=== PATIENT | female | born 1955 | race Caucasian/White ===

== ENCOUNTER → 2016-09-21 | Outpatient (REF) | payer OTHER ==
[~2016-09-21] MED LIST: ALEVE; ATEN50TA2; DARV100T; [UNRECOGNIZED DRUG - CODE]; aleve
== END ==
LOC: M SFHCPLAZ 12:27
PROVIDERS: ATTEND Family Medicine
DX: I10 Essential (primary) hypertension (principal); G89.29 Other chronic pain; Z53.9 Procedure and treatment not carried out, unspecified reason

== ENCOUNTER 2016-11-25 11:03 | Emergency (ER) | payer OTHER ==
[2016-11-25] MEDS ORDERED: TRAM50TA2 PO (11:17)
[2016-11-25] MEDS ORDERED: NAPR250T2 PO (11:17)
[2016-11-25] MEDS ORDERED: CART120C PO (11:17)
[2016-11-25] MEDS ORDERED: LISI10TA4 PO (11:19)
[2016-11-25 11:48] LABS: MEAN CORPUSCULAR HEMOGLOBIN 29.8 pg (27.0-33.0); MEAN CORPUSCULAR HGB CONC 32.9 g/dl (32.0-36.5); MEAN CORPUSCULAR VOLUME 90.7 fl (80.0-96.0); RED CELL DISTRIBUTION WIDTH 12.3 % (11.5-14.5); WHITE BLOOD COUNT 4.1 K/mm3 (4.0-10.0)
[2016-11-25 12:15] LABS: ALBUMIN 3.5 GM/DL (3.2-5.2); ALBUMIN/GLOBULIN RATIO 0.97 (1.00-1.93); BILIRUBIN,TOTAL 0.4 MG/DL (0.2-1.0); CREATININE FOR GFR 1.17 MG/DL (0.55-1.02); GLOMERULAR FILTRATION RATE 49.9 (>45); POTASSIUM SERUM 4.2 MEQ/L (3.5-5.1); TOTAL PROTEIN 7.1 GM/DL (6.4-8.2)
[2016-11-25 12:56] VITALS: BP 117/70
--- NOTE | 2016-11-26 06:22 | REP ---
REASON: Hemoptysis secondary to nose bleed. COMPARISON: 06/07/2014. The technique utilized in obtaining the radiograph has magnified the cardiac silhouette and accentuated the interstitial markings. FINDINGS: The superior mediastinal structures are midline. The cardiac silhouette is unremarkable in size, shape, and position. The diaphragmatic surfaces of the lungs are regular, and the costophrenic angles are clear. The pulmonary keys are clear. The imaged osseous structures are intact. IMPRESSION: There is no acute cardiopulmonary disease. No change from the prior exam. Signed by Gilmar Beavers DO 11/26/2016 12:05 P
== END 2016-11-25 13:08 | disposition home or self-care (01) ==
LOC: EDBD 11:03 → M ED 11:56
DX: R04.0 Epistaxis (principal); I10 Essential (primary) hypertension; Z87.440 Personal history of urinary (tract) infections; Z85.841 Personal history of malignant neoplasm of brain

== ENCOUNTER → 2017-01-17 | Outpatient (CLI) | payer OTHER ==
[~2017-01-17] MED LIST changes: +CART120C PO; +ISOVUE-370 76% 100ML VIAL (Q9967) As Ordered ONE; +LISI10TA4 PO; +NAPR250T2 PO; +TRAM50TA2 PO
--- NOTE | 2017-01-17 11:22 | REP ---
MAXILLOFACIAL CT WITH CONTRAST: HISTORY: Epistaxis. CONTRAST: Isovue 370, 75 mL. A left Lokesh cell is present. Mild mucosal thickening is present in the left maxillary sinus. Minimal mucosal thickening is present in the right maxillary and left sphenoid sinuses. The remaining sinuses are clear. Mucosal thickening involves the left osteomeatal unit. The right osteomeatal unit is patent. The middle and inferior nasal turbinates are partially paradoxical. There is eddi bullosa of the middle nasal turbinates. The nasal septum is midline. The cribriform plate, medial power of the orbits, and optic canals are intact. There is aeration of the anterior clinoid processes. The carotid canals form a segment of the posterolateral power of the sphenoid sinus. Calcifications are present in the tonsils. This is secondary to previous inflammatory disease. Small lymph nodes less than 1 cm in size are present in the internal jugular chains, posterior triangles, submandibular, and submental areas. IMPRESSION: Sinus mucosal thickening as described above. Signed by Mendel Lovett MD 01/17/2017 11:24 A
== END ==
LOC: M RAD 10:26
PROVIDERS: ATTEND Otolaryngology
DX: R04.0 Epistaxis (principal); J34.89 Other specified disorders of nose and nasal sinuses
CPT/HCPCS: 70487; Q9967

== ENCOUNTER → 2017-04-02 | Outpatient (CLI) | payer OTHER ==
[~2017-04-02] MED LIST changes: -ISOVUE-370 76% 100ML VIAL (Q9967) As Ordered ONE; -NAPR250T2 PO; +NAPR250T4 PO
== END ==
LOC: M LAB 15:32
PROVIDERS: ATTEND Student in an Organized Health Care Education/Training Program
DX: G47.62 Sleep related leg cramps (principal)

== ENCOUNTER → 2017-05-08 | Outpatient (REF) | payer OTHER | LOC: M SFHCPLAZ 13:20 | PROVIDERS: ATTEND Family Medicine | DX: I10 Essential (primary) hypertension (principal) ==

== ENCOUNTER → 2017-07-29 | Outpatient (CLI) | payer OTHER ==
--- NOTE | 2017-07-29 15:42 | REP ---
Clinical: Bilateral varicosities. Technique: [place] scale and color Doppler evaluation using linear high frequency transducer with reflux evaluation. Findings: Ultrasound examination of the right and left lower extremity deep venous structures from the common femoral vein to the popliteal vein demonstrates normal compressibility flow and wave patterns in response to respiration and augmentation. There is no evidence for deep venous thrombosis. There is partial occlusion involving the right proximal to mid greater saphenous vein. There is evidence for reflux through the right deep venous system. Severe reflux noted through the right proximal to mid greater saphenous vein including associated large collateral vessels and anterior accessory vein. Specifically, the proximal greater saphenous vein measures 12.3 mm AP diameter with reflux of 4.6 second duration; the mid greater saphenous vein measures 11.3 mm AP diameter with reflux of 3.2 seconds duration; distal greater saphenous vein at the knee measures 8.4 mm AP diameter with reflux 1.6 seconds. There is no evidence for reflux through the left deep venous system. Moderate reflux noted through the left proximal to mid greater saphenous vein including anterior accessory vein. Specifically, the proximal greater saphenous vein measures 7.7 mm AP diameter with reflux of 2.6 seconds duration; the mid greater saphenous vein measures 4.2 mm AP diameter with reflux of 5.8 seconds duration; distal greater saphenous vein at the knee measures 4.6 mm. Impression: 1. No evidence for deep venous thrombosis. 2. Partial occlusion to the right greater saphenous vein. 3. Bilateral reflux (right greater than left) as described above. Signed by Gonzalo Medel MD 07/29/2017 03:33 P
== END | disposition home or self-care (01) ==
LOC: M RAD 13:13
PROVIDERS: ATTEND Surgery Vascular Surgery
DX: I83.90 Asymptomatic varicose veins of unspecified lower extremity (principal)

== ENCOUNTER → 2017-09-05 | Outpatient (REF) | payer OTHER | LOC: M SFHCLERA 11:30 | PROVIDERS: ATTEND Family Medicine | DX: J02.9 Acute pharyngitis, unspecified (principal) ==

== ENCOUNTER → 2017-11-04 | Outpatient (CLI) | payer OTHER ==
[2017-11-04 10:37] LABS: BASO % 0.7 % (0.0-1.0); EOS # 0.2 10^3/uL (0.0-0.50); EOS % 4.1 % (0.0-3.0); HEMATOCRIT 39.8 % (36.0-47.0); HEMOGLOBIN 12.6 g/dl (12.0-16.0); IMMATURE GRANULOCYTE % 0.4 % (0-3.0); LYMPH # 1.6 10^3/uL (1.5-4.5); LYMPH % 29.9 % (24.0-44.0); MEAN CORPUSCULAR HEMOGLOBIN 29.5 pg (27.0-33.0); MEAN CORPUSCULAR HGB CONC 31.7 g/dl (32.0-36.5); MEAN CORPUSCULAR VOLUME 93.2 fl (80.0-96.0); MONO # 0.5 10^3/uL (0.0-0.8); MONO % 9.7 % (0.0-5.0); NEUTROPHILS % 55.2 % (36.0-66.0); PLATELET COUNT, AUTOMATED 244 10^3/uL (150-450); RED BLOOD COUNT 4.27 10^6/uL (4.00-5.40); WHITE BLOOD COUNT 5.4 10^3/uL (4.0-10.0)
[2017-11-04 10:55] LABS: ANION GAP 5 MEQ/L (8-16); BLOOD UREA NITROGEN 32 MG/DL (7-18); CALCIUM LEVEL 9.4 MG/DL (8.8-10.2); CARBON DIOXIDE LEVEL 31 MEQ/L (21-32); CHLORIDE LEVEL 107 MEQ/L (98-107); CREATININE FOR GFR 1.16 MG/DL (0.55-1.30); GLOMERULAR FILTRATION RATE 50.2 (>45); GLUCOSE, FASTING 80 MG/DL (70-100); POTASSIUM SERUM 4.4 MEQ/L (3.5-5.1); SODIUM LEVEL 143 MEQ/L (136-145)
== END ==
LOC: M LAB 09:59
DX: I87.393 Chronic venous hypertension (idiopathic) with other complications of bilateral lower extremity (principal)

== ENCOUNTER → 2017-11-18 | Outpatient (CLI) | payer OTHER | LOC: M EKG 16:17 | DX: Z01.818 Encounter for other preprocedural examination (principal); I10 Essential (primary) hypertension | CPT/HCPCS: 93005 ==

== ENCOUNTER 2017-11-22 08:59 | Day surgery (SDC) | payer OTHER ==
[~2017-11-22 08:59] MED LIST changes: -ALEVE; -ATEN50TA2; -CART120C PO; -DARV100T; +LIDOCAINE 1% SDV INJ 30 ML VIAL As Ordered; -LISI10TA4 PO; -NAPR250T4 PO; -TRAM50TA2 PO; -[UNRECOGNIZED DRUG - CODE]; -aleve
[2017-11-22] MEDS: LR 1,000 ML IV (09:35)
[2017-11-22] MEDS ORDERED: PROPOFOL 200 MG/20 ML VIAL As Ordered ×7 (09:36→11:28)
[2017-11-22] MEDS ORDERED: MIDAZOLAM INJ 2 MG/2 ML VIAL (J2250) As Ordered ×2 (09:38→10:51)
[2017-11-22] MEDS ORDERED: fentaNYL 100 MCG/2 ML INJECTION (J3010) As Ordered (09:39)
[2017-11-22] MEDS: LIDOCAINE W/EPINEPHRINE 1% 20ML VIAL As Ordered (11:12)
[2017-11-22] MEDS ORDERED: KETOROLAC 60 MG/2 ML VIAL (J1885) As Ordered (11:14)
[2017-11-22] MEDS ORDERED: ONDANSETRON 4MG/2ML VIAL (J2405) As Ordered (11:14)
[2017-11-22] MEDS ORDERED: dexameTHASONE 4 MG/ML 1ML VIAL (J1100) As Ordered ×2 (11:14)
[2017-11-22] MEDS ORDERED: PERCOCET 5MG/325MG TAB As Ordered (12:20)
[2017-11-22] MEDS ORDERED: ONDANSETRON 4MG/2ML VIAL (J2405) IV (12:30)
[2017-11-22] MEDS ORDERED: LR 1,000 ML IV (12:30)
[2017-11-22] MEDS: PERCOCET 5MG/325MG TAB PO (12:31)
== END 2017-11-22 13:24 | disposition home or self-care (01) ==
LOC: M SDC 08:59
DX: I83.93 Asymptomatic varicose veins of bilateral lower extremities (principal); I10 Essential (primary) hypertension; M81.0 Age-related osteoporosis without current pathological fracture; E66.01 Morbid (severe) obesity due to excess calories; Z79.899 Other long term (current) drug therapy
CPT/HCPCS: 36475

== ENCOUNTER → 2017-11-29 | Outpatient (CLI) | payer OTHER | LOC: M RAD 09:51 | DX: I87.2 Venous insufficiency (chronic) (peripheral) (principal) | CPT/HCPCS: 93971 ==

== ENCOUNTER 2018-01-11 16:07 | Emergency (ER) | payer OTHER ==
[2018-01-11 17:44] LABS: BASO % 0.3 % (0.0-1.0); EOS # 0.3 10^3/uL (0.0-0.50); EOS % 3.3 % (0.0-3.0); HEMATOCRIT 38.4 % (36.0-47.0); HEMOGLOBIN 12.4 g/dl (12.0-15.5); IMMATURE GRANULOCYTE % 0.3 % (0-3.0); LYMPH # 1.5 10^3/uL (1.5-4.5); MEAN CORPUSCULAR HEMOGLOBIN 30.1 pg (27.0-33.0); MEAN CORPUSCULAR HGB CONC 32.3 g/dl (32.0-36.5); MEAN CORPUSCULAR VOLUME 93.2 fl (80.0-96.0); MONO # 0.8 10^3/uL (0.0-0.8); MONO % 8.8 % (0.0-5.0); NEUTROPHILS # 6.5 10^3/uL (1.8-7.7); NEUTROPHILS % 71.3 % (36.0-66.0); PLATELET COUNT, AUTOMATED 312 10^3/uL (150-450); RED BLOOD COUNT 4.12 10^6/uL (4.00-5.40); RED CELL DISTRIBUTION WIDTH 12.5 % (11.5-14.5); WHITE BLOOD COUNT 9.1 10^3/uL (4.0-10.0)
[2018-01-11 18:02] LABS: INR 0.99; PROTHROMBIN TIME 13.2 SECONDS (12.4-14.5)
[2018-01-11 18:10] LABS: ANION GAP 6 MEQ/L (8-16); BLOOD UREA NITROGEN 25 MG/DL (7-18); C REACTIVE PROTEIN QUANTITATIV 9.92 MG/DL (0.00-0.30); CALCIUM LEVEL 9.6 MG/DL (8.8-10.2); CARBON DIOXIDE LEVEL 28 MEQ/L (21-32); CHLORIDE LEVEL 107 MEQ/L (98-107); CREATININE FOR GFR 1.72 MG/DL (0.55-1.30); GLOMERULAR FILTRATION RATE 31.9 (>45); GLUCOSE, FASTING 97 MG/DL (70-100); POTASSIUM SERUM 4.1 MEQ/L (3.5-5.1); SODIUM LEVEL 141 MEQ/L (136-145)
[2018-01-11 18:30] LABS: ERYTHROCYTE SEDIMENTATION RATE 67 mm/hr (0-30)
[2018-01-11] MEDS: NS 1,000 ML IV (19:45)
[2018-01-11] MEDS: cefTRIAXone SOD 2 GM in D5W MINI-BAG PLUS 50 ML IV (19:45)
[2018-01-11] MEDS: AUGMENTIN 875 MG TAB PO (20:55)
== END 2018-01-11 21:05 | disposition home or self-care (01) ==
LOC: M ED 16:07
DX: L03.116 Cellulitis of left lower limb (principal); S81.802A Unspecified open wound, left lower leg, initial encounter; X58.XXXA Exposure to other specified factors, initial encounter; Y92.89 Other specified places as the place of occurrence of the external cause; I10 Essential (primary) hypertension
CPT/HCPCS: J0696

== ENCOUNTER 2018-01-13 13:01 | Emergency (ER) | payer OTHER ==
[2018-01-13 15:42] LABS: BASO % 0.4 % (0.0-1.0); EOS # 0.4 10^3/uL (0.0-0.50); EOS % 4.9 % (0.0-3.0); IMMATURE GRANULOCYTE % 0.3 % (0-3.0); LYMPH # 2.1 10^3/uL (1.5-4.5); LYMPH % 23.6 % (24.0-44.0); MEAN CORPUSCULAR HGB CONC 32.4 g/dl (32.0-36.5); MEAN CORPUSCULAR VOLUME 92.5 fl (80.0-96.0); MONO # 0.8 10^3/uL (0.0-0.8); MONO % 8.8 % (0.0-5.0); NEUTROPHILS # 5.6 10^3/uL (1.8-7.7); PLATELET COUNT, AUTOMATED 304 10^3/uL (150-450); RED CELL DISTRIBUTION WIDTH 12.4 % (11.5-14.5)
[2018-01-13 15:59] LABS: INR 0.99; PROTHROMBIN TIME 13.2 SECONDS (12.4-14.5)
[2018-01-13 16:00] LABS: PARTIAL THROMBOPLASTIN TIME 29.5 SECONDS (26.8-37.9)
[2018-01-13 16:01] LABS: ANION GAP 6 MEQ/L (8-16); BLOOD UREA NITROGEN 23 MG/DL (7-18); CALCIUM LEVEL 9.5 MG/DL (8.8-10.2); CARBON DIOXIDE LEVEL 28 MEQ/L (21-32); CHLORIDE LEVEL 105 MEQ/L (98-107); GLUCOSE, FASTING 85 MG/DL (70-100); POTASSIUM SERUM 4.2 MEQ/L (3.5-5.1); SODIUM LEVEL 139 MEQ/L (136-145)
== END 2018-01-13 17:26 | disposition home or self-care (01) ==
LOC: M ED 13:01
DX: L03.116 Cellulitis of left lower limb (principal); T36.0X5A Adverse effect of penicillins, initial encounter; R19.7 Diarrhea, unspecified; E86.0 Dehydration; I10 Essential (primary) hypertension; Z87.440 Personal history of urinary (tract) infections; Z79.899 Other long term (current) drug therapy; Z79.2 Long term (current) use of antibiotics
CPT/HCPCS: 80048

== ENCOUNTER → 2018-04-23 | Outpatient (CLI) | payer OTHER | LOC: M RAD 11:52 | DX: Z12.31 Encounter for screening mammogram for malignant neoplasm of breast (principal) | CPT/HCPCS: 77067 ==

== ENCOUNTER → 2018-07-23 | Outpatient (CLI) | payer OTHER | LOC: M LRY 17:51 | DX: R10.32 Left lower quadrant pain (principal) | CPT/HCPCS: 74018; 81002 ==

== ENCOUNTER → 2018-07-23 | Outpatient (REF) | payer OTHER | LOC: M SFHCLERA 17:45 | DX: R10.32 Left lower quadrant pain (principal) ==

== ENCOUNTER → 2018-10-15 | Outpatient (REF) | payer OTHER ==
[~2018-10-15] MED LIST changes: +ALEV220T26 PO; +ALEVE; +ATEN50TA2; +AUGM875T28 PO; +CALCTAB29 PO; +CART120C PO; +DARV100T; -LIDOCAINE 1% SDV INJ 30 ML VIAL As Ordered; +LISI10TA4 PO; +NAPR250T4 PO; +NORCOTAB PO; +TRAM50TA2 PO; +[UNRECOGNIZED DRUG - CODE]; +aleve
== END ==
LOC: M SFHCLERA 10:09
PROVIDERS: ATTEND Physician Assistant
DX: J02.9 Acute pharyngitis, unspecified (principal)

== ENCOUNTER → 2019-01-06 | Outpatient (REF) | payer OTHER ==
[~2019-01-06] MED LIST changes: +HYDR-3715 PO; -NORCOTAB PO
[2019-01-06 12:03] LABS: CALCIUM LEVEL 8.9 MG/DL (8.8-10.2); CREATININE FOR GFR 1.36 MG/DL (0.55-1.30); GLOMERULAR FILTRATION RATE 41.7 (>45); POTASSIUM SERUM 5.3 MEQ/L (3.5-5.1)
== END ==
LOC: M SFHCLERA 09:13
PROVIDERS: ATTEND Family Medicine
DX: I10 Essential (primary) hypertension (principal)

== ENCOUNTER → 2019-01-22 | Outpatient (REF) | payer OTHER ==
[2019-01-22 11:35] LABS: BASO % 0.6 % (0.0-1.0); EOS # 0.1 10^3/uL (0.0-0.50); EOS % 2.5 % (0.0-3.0); HEMATOCRIT 40.6 % (36.0-47.0); HEMOGLOBIN 12.9 g/dl (12.0-15.5); LYMPH # 1.2 10^3/uL (1.5-4.5); LYMPH % 25.6 % (24.0-44.0); MEAN CORPUSCULAR HEMOGLOBIN 29.6 pg (27.0-33.0); MEAN CORPUSCULAR HGB CONC 31.8 g/dl (32.0-36.5); MEAN CORPUSCULAR VOLUME 93.1 fl (80.0-96.0); MONO # 0.6 10^3/uL (0.0-0.8); MONO % 12.4 % (0.0-5.0); NEUTROPHILS # 2.8 10^3/uL (1.8-7.7); NEUTROPHILS % 58.5 % (36.0-66.0); PLATELET COUNT, AUTOMATED 226 10^3/uL (150-450); RED BLOOD COUNT 4.36 10^6/uL (4.00-5.40); WHITE BLOOD COUNT 4.8 10^3/uL (4.0-10.0)
[2019-01-22 11:38] LABS: APPEARANCE, URINE HAZY (CLEAR); BACTERIA, URINE AUTO NEGATIVE (NEGATIVE); BILIRUBIN, URINE AUTO NEGATIVE (NEGATIVE); BLOOD, URINE BLOOD NEGATIVE (NEGATIVE); COLOR, URINE YELLOW (YELLOW); GLUCOSE, URINE (UA) AUTO NEGATIVE (NEGATIVE); KETONE, URINE AUTO NEGATIVE (NEGATIVE); LEUKOCYTE ESTERASE, URINE AUTO 1+ (NEGATIVE); MUCUS, URINE SMALL (NEGATIVE); NITRITE, URINE AUTO NEGATIVE (NEGATIVE); PROTEIN, URINE AUTO NEGATIVE (NEGATIVE); RBC, URINE AUTO 1 /HPF (0-3); SPECIFIC GRAVITY URINE AUTO 1.017 (1.002-1.035); SQUAMOUS EPITHELIAL CELL UR AU 7 /HPF (0-6); UROBILINOGEN, URINE AUTO 0.2 mg/dL (0.0-2.0); WBC, URINE AUTO 3 /HPF (0-3)
[2019-01-22 11:40] LABS: BILIRUBIN,TOTAL 0.4 MG/DL (0.2-1.0); CALCIUM LEVEL 9.2 MG/DL (8.8-10.2); CREATININE FOR GFR 1.43 MG/DL (0.55-1.30); GLOMERULAR FILTRATION RATE 39.3 (>45); POTASSIUM SERUM 4.8 MEQ/L (3.5-5.1); TOTAL PROTEIN 6.9 GM/DL (6.4-8.2)
== END ==
LOC: M SFHCLERA 09:03
PROVIDERS: ATTEND Family Medicine
DX: R35.0 Frequency of micturition (principal)

== ENCOUNTER → 2019-02-04 | Outpatient (REF) | payer OTHER ==
[2019-02-04 20:32] LABS: ALBUMIN 3.7 GM/DL (3.2-5.2); CALCIUM LEVEL 8.9 MG/DL (8.8-10.2); CREATININE FOR GFR 1.33 MG/DL (0.55-1.30); GLOMERULAR FILTRATION RATE 42.8 (>45); PHOSPHORUS LEVEL 3.9 MG/DL (2.5-4.9)
== END ==
LOC: M SFHCLERA 16:20
PROVIDERS: ATTEND Family Medicine
DX: R94.4 Abnormal results of kidney function studies (principal)

== ENCOUNTER → 2019-06-01 | Outpatient (CLI) | payer MEDICARE, OTHER ==
--- NOTE | 2019-06-01 15:20 | REP ---
BILATERAL SCREENING DIGITAL MAMMOGRAM WITH 3D TOMOSYNTHESIS: There are no palpable abnormalities or other breast complaints. The the patient states she had a clinical breast examination May,. The Tyrer-Cuzick Score is: 11.8% . Comparison is 05/25/2016. There are scattered areas of fibroglandular density. There is no dominant mass, micro calcific cluster or architectural distortion that would indicate malignancy. There are scattered isolated benign calcifications. There are no additional findings on 3D tomosynthesiss. There is no change from the prior study. Impression: BIRADS/ACR category 2 mammogram. Benign findings. Recommendation: Routine annual screening mammography. This mammogram was interpreted with the aid of a FDA approved computer-aided detection system. A. Negative mammogram reports should not delay biopsy if a dominant or clinically suspicious mass is present. B. Not all breast cancers are identified by mammography or tomosynthesis. C. Adenosis and dense breasts may obscure an underlying neoplasm. Patient letter M1. Electronically Signed by Seamus Agustin MD 06/01/2019 03:12 P
== END ==
LOC: M RAD 13:29
PROVIDERS: ATTEND Obstetrics & Gynecology
DX: Z12.31 Encounter for screening mammogram for malignant neoplasm of breast (principal)

== ENCOUNTER → 2019-10-21 | Outpatient (REF) | payer MEDICARE, OTHER | LOC: M SFHCLERA 11:15 | PROVIDERS: ATTEND Family Medicine | DX: R35.0 Frequency of micturition (principal) | CPT/HCPCS: 81002; 87088; 87186; G0463 ==

== ENCOUNTER → 2020-06-16 | Outpatient (CLI) | payer MEDICARE, OTHER ==
--- NOTE | 2020-06-16 09:36 | REPMRS ---
Patient History The patient states she had a clinical breast exam in May 2020.Family history of breast cancer at age 70 in mother. 3D TOMOSYNTHESIS WAS PERFORMED. [facility] for breast cancer [facility] 10.7%. VOLPARA DENSITY A. Digital Woman Screen Mammo: June 16, 2020 - Exam #: [id number] Bilateral CC and MLO view(s) were taken. Technologist: Margaret Lucia, Technologist Prior study comparison: June 01, 2019, bilateral digital mammo screening bilat, performed at [facility]. April 23, 2018, bilateral digital mammo screening bilat, performed at [facility]. FINDINGS: There are scattered fibroglandular densities. There has been no change in the appearance of the mammogram from the prior studies. There is a mild amount of residual fibroglandular tissue which is fairly symmetric. There is no interval development of dominant mass, architectural distortion, or clustered microcalcification suggestive of malignancy. Assessment: BI-RADS/ACR category 1 mammogram. Negative Mammogram. Recommendation Routine screening mammogram in 1 year (for women over age 40). This mammogram was interpreted with the aid of an FDA-approved computer-aided dectection system. Electronically Signed By: Seamus Del Rio MD 06/16/20 0935
--- NOTE | 2020-06-21 15:46 | DEXA ---
AP SPINE L1 - L4 1.501 2.5 4.1 LT FEMUR TOTAL 0.975 -0.3 1.0 LT NECK 0.930 -0.8 0.7 RT FEMUR TOTAL 0.940 -0.5 0.7 RT NECK 1.151 0.8 2.3 TOTAL BODY TOTAL OTHER COMMENTS: Normal bone density of the spine and hips. The density of the spine is increased 10.5% since 04/17/2018 The density of the left hip has decreased 5.1% since 04/17/2018. The density of the right hip has decreased 8.4% since 04/17/2018. The increased density of the spine does represent a significant change. The decreased density of the left hip does represent a significant change. The decreased density of the right hip does represent significant change. FOLLOW-UP: Recommendation for the next bone density exam: 5 years. RANJAN
== END ==
LOC: M WHC 08:12
PROVIDERS: ATTEND Advanced Practice Midwife
DX: Z13.820 Encounter for screening for osteoporosis (principal); Z12.31 Encounter for screening mammogram for malignant neoplasm of breast; Z80.3 Family history of malignant neoplasm of breast; M85.851 Other specified disorders of bone density and structure, right thigh; M85.852 Other specified disorders of bone density and structure, left thigh

== ENCOUNTER → 2020-08-03 | Outpatient (REF) | payer MEDICARE, OTHER | LOC: M SFHCLERA 15:44 | PROVIDERS: ATTEND Nurse Practitioner Family | DX: R35.0 Frequency of micturition (principal); R81 Glycosuria | CPT/HCPCS: 81002; 82948; 87086; G0463 ==

== ENCOUNTER → 2020-08-05 | Outpatient (CLI) | payer MEDICARE, OTHER ==
[2020-08-05 17:00] LABS: BASO % 0.6 % (0.0-1.0); EOS # 0.3 10^3/uL (0.0-0.5); EOS % 4.3 % (0.0-3.0); HEMATOCRIT 38.8 % (36.0-47.0); HEMOGLOBIN 12.3 g/dl (12.0-15.5); LYMPH # 2.1 10^3/uL (1.5-5.0); LYMPH % 33.7 % (24.0-44.0); MEAN CORPUSCULAR HEMOGLOBIN 30.4 pg (27.0-33.0); MEAN CORPUSCULAR HGB CONC 31.7 g/dl (32.0-36.5); MONO # 0.6 10^3/uL (0.0-0.8); NEUTROPHILS # 3.1 10^3/uL (1.5-8.5); NEUTROPHILS % 50.1 % (36.0-66.0); PLATELET COUNT, AUTOMATED 209 10^3/uL (150-450); RED BLOOD COUNT 4.04 10^6/uL (4.00-5.40); WHITE BLOOD COUNT 6.2 10^3/uL (4.0-10.0)
[2020-08-05 17:28] LABS: ALBUMIN 3.6 GM/DL (3.2-5.2); BILIRUBIN,TOTAL 0.4 MG/DL (0.2-1.0); CALCIUM LEVEL 9.4 MG/DL (8.8-10.2); CREATININE FOR GFR 1.51 MG/DL (0.55-1.30); GLOMERULAR FILTRATION RATE 36.7 (>45); POTASSIUM SERUM 4.4 MEQ/L (3.5-5.1); TOTAL PROTEIN 6.6 GM/DL (6.4-8.2)
== END ==
LOC: M LAB 16:17
PROVIDERS: ATTEND Nurse Practitioner Family
DX: R81 Glycosuria (principal); Z79.899 Other long term (current) drug therapy

== ENCOUNTER → 2020-08-19 | Outpatient (CLI) | payer MEDICARE, OTHER ==
[2020-08-19 17:51] LABS: APPEARANCE, URINE HAZY (CLEAR); BACTERIA, URINE AUTO 1+ (NEGATIVE); BILIRUBIN, URINE AUTO NEGATIVE (NEGATIVE); BLOOD, URINE BLOOD NEGATIVE (NEGATIVE); COLOR, URINE YELLOW (YELLOW); GLUCOSE, URINE (UA) AUTO NEGATIVE (NEGATIVE); KETONE, URINE AUTO NEGATIVE (NEGATIVE); LEUKOCYTE ESTERASE, URINE AUTO 3+ (NEGATIVE); NITRITE, URINE AUTO NEGATIVE (NEGATIVE); PROTEIN, URINE AUTO NEGATIVE (NEGATIVE); RBC, URINE AUTO 2 /HPF (0-3); SPECIFIC GRAVITY URINE AUTO 1.023 (1.002-1.035); SQUAMOUS EPITHELIAL CELL UR AU 2 /HPF (0-6); UROBILINOGEN, URINE AUTO 0.2 mg/dL (0.0-2.0); WBC, URINE AUTO 7 /HPF (0-3)
[2020-08-19 18:25] LABS: ALBUMIN 3.7 GM/DL (3.2-5.2); BILIRUBIN,TOTAL 0.5 MG/DL (0.2-1.0); CALCIUM LEVEL 9.3 MG/DL (8.8-10.2); CREATININE FOR GFR 1.53 MG/DL (0.55-1.30); GLOMERULAR FILTRATION RATE 36.2 (>45); MAGNESIUM LEVEL 2.1 MG/DL (1.8-2.4); PHOSPHORUS LEVEL 3.3 MG/DL (2.5-4.9); POTASSIUM SERUM 4.6 MEQ/L (3.5-5.1); TOTAL PROTEIN 6.6 GM/DL (6.4-8.2)
== END ==
LOC: M LAB 16:46
PROVIDERS: ATTEND Family Medicine
DX: N18.30 Chronic kidney disease, stage 3 unspecified (principal)

== ENCOUNTER 2020-08-20 05:51 | Emergency (ER) | payer MEDICARE, OTHER ==
[~2020-08-20] VITALS: Ht 160 cm; Wt 118.3 kg
--- NOTE | 2020-08-20 07:23 | REPVR ---
PROCEDURE INFORMATION: Exam: XR Left Humerus Exam date and time: 08/20/2020 6:45 AM Age: 65 years old Clinical indication: Other: Pain; Additional info: Pain, swelling/tumor TECHNIQUE: Imaging protocol: XR Left humerus Views: 2 or more views. COMPARISON: No relevant prior studies available. FINDINGS: Bones/joints: Normal. Soft tissues: Normal. IMPRESSION: No acute findings. Electronically signed by: Eros Farmer On 08/20/2020 07:23:55 AM
--- NOTE | 2020-08-20 07:42 | REPVR ---
PROCEDURE INFORMATION: Exam: US Duplex Left Upper Extremity Veins, Limited Exam date and time: 08/20/2020 7:26 AM Age: 65 years old Clinical indication: Pain; Arm, upper; Left; Additional info: Pain, swelling TECHNIQUE: Imaging protocol: Real-time Duplex ultrasound of the Left Upper Extremity with 2-D mathur scale, color Doppler flow and spectral waveform analysis with image documentation. Limited exam focused on the left upper extremity veins. COMPARISON: No relevant prior studies available. FINDINGS: Left deep veins: Unremarkable. Axillary and brachial veins are patent throughout without thrombus. Normal Doppler waveforms. Normal compressibility and/or augmentation response. Visualized internal jugular and subclavian veins are patent. Left superficial veins: Unremarkable. Visualized cephalic and basilic veins are patent without thrombus. Soft tissues: Unremarkable. IMPRESSION: No evidence of deep vein thrombosis. Electronically signed by: Eros Farmer On 08/20/2020 07:42:23 AM
[2020-08-20 08:11] VITALS: BP 124/80
== END 2020-08-20 08:26 | disposition home or self-care (01) ==
LOC: M ED 05:51
DX: D17.22 Benign lipomatous neoplasm of skin and subcutaneous tissue of left arm (principal); M79.602 Pain in left arm; I10 Essential (primary) hypertension; Z79.899 Other long term (current) drug therapy

== ENCOUNTER → 2020-09-21 | Outpatient (CLI) | payer MEDICARE, OTHER ==
[~2020-09-21] MED LIST changes: +D31000TA2 PO
--- NOTE | 2020-09-22 00:03 | ECGEPIP ---
[facility] Test Date: 2020-09-21 Pat Name: BRYN BRITO Department: Room: - Gender: Female Twister Hand: : 1955 Requested By: ORALIA Castro Order Number: [id number] Reading MD: Marlo Rose Measurements Intervals Likely Rate: 58 P: -4 MT: 138 QRS: 45 QRSD: 82 T: 31 QT: 378 QTc: 374 Interpretive Statements SINUS BRADYCARDIA Compared to prior tracings(2) in the system, no significant changes Electronically Signed on 09-22-2020 0:03:04 EST by Marlo Rose
== END ==
LOC: M EKG 16:03
PROVIDERS: ATTEND Anesthesiology
DX: N28.9 Disorder of kidney and ureter, unspecified (principal); I10 Essential (primary) hypertension; R00.1 Bradycardia, unspecified

== ENCOUNTER → 2020-09-28 | Outpatient (CLI) | payer MEDICARE, OTHER | LOC: M LABSMTC 10:00 | PROVIDERS: ATTEND Anesthesiology | DX: Z01.812 Encounter for preprocedural laboratory examination (principal); Z20.828 Contact with and (suspected) exposure to other viral communicable diseases ==

== ENCOUNTER 2020-10-03 06:12 | Day surgery (SDC) | payer MEDICARE, OTHER ==
[~2020-10-03] VITALS: Ht 162.6 cm; Wt 115.2 kg
[~2020-10-03 06:12] MED LIST changes: +LISI10TA22 PO; -LISI10TA4 PO
--- OUTSIDE RECORDS SUMMARY | 2020-10-03 06:17 | CCD ---
Author Author [facility] Organization [facility] Address Unknown Phone Unavailable Care Team Providers Care Planting Machine Crewman Name Role Phone Carolin Becerra Unavailable PROBLEMS Type Condition ICD9-CM Code [id number] Code Onset Dates Condition S tatus SNOMED Code Notes Problem History of uterine cancer Z85.42 Active 718318 009 Problem History of meningioma of the brain Z86.011 Activ e 368014055 Problem Allergic rhinitis J30.9 Active 06789902 Problem Symptomatic varicose veins of right lower extremity I83.891 Active 672802119 Problem Venous stasis dermatitis of both lower extremities I87.2 Active 02086726 Problem Essential (primary) hypertension I10 Active 74266640 Problem Other chronic pain G89.29 Active 65569891 Problem Morbid (severe) obesity due to excess calories E66 .01 Active 694215388 Problem Post-traumatic osteoarthritis of left ankle M19.17 2 Active 673490537 ALLERGIES No Known Allergies ENCOUNTERS from 1955 to 2020-08-02 Encounter Location Date Provider Diagnosis [facility] [address] [place] [address] Jul, Carolin Becerra Post-traumatic osteoarthritis of left an kle M19.172 IMMUNIZATIONS Vaccine Route Administration Date Status TDAP Unknown Aug 16, 2010 Administered Influenza (6mo & up) Fluzone IM Intramuscular Jul 10, 2018 Ad ministered Influenza (6mo & up) Fluzone IM Intramuscular Sep 10, 2017 Ad ministered Influenza (6mo & up) Fluzone Unknown Jul 14, 2017 Oth ers Influenza (6mo & up) Fluzone Unknown Jul 02, 2016 Oth ers SOCIAL HISTORY Tobacco Use: Social History Observation Description Date Details (start date - stop date) Never Smoker Sex Assigned At : Social History Observation Description Sex Assigned At Unknown Education: Question Answer Notes Level of Education: College Language: Question Answer Notes Languages spoken: Uruguayan Oriental Orthodox: Question Answer Notes Oriental Orthodox No sabianism beliefs that would impact health care. Sexual Hx: Question Answer Notes Had sex in the last 12 months (vaginal, oral, or anal)? No Alcohol Screening: Question Answer Notes Did you have a drink containing alcohol in the past year? No Points 0 Interpretation Negative BMI Care Goal Follow-Up Question Answer Notes Above Normal BMI Follow-Up Lifestyle education regarding t Tobacco Use: Question Answer Notes Are you a: never smoker never smoker REASON FOR REFERRAL No Information VITAL SIGNS No information MEDICATIONS Medication SIG (Take, Route, Frequency, Duration) Notes Start Da te End Date Status Cartia XT 120 MG 1 capsule Orally Once a day for 90 Active Macrobid 100 MG 1 capsule with food Orally every 12 hrs for 5 da y(s) January, Not-Taking Aquaphor - as directed Externally Daily for 30 day(s) 27 N 2016 Not-Taking Naproxen 250 MG 1 tablet Orally Twice a day Active CeraVe Active Calcium 500+D High Potency 500-400 MG-UNIT 2 tabs Orally daily May, Active Macrobid 100 MG 1 capsule at bedtime with food Orally bid for 5 days Oct, Active Tramadol HCl 50MG 1 tablet as needed Orally every 8 hrs MDD:3 for 28 days Active Proctosol HC 2.5% 1 application to affected ar ea Rectal Twice a day as needed for 30 Active Lisinopril 20 MG 1 tablet Orally Once a day for 90 Active PROCEDURES No Information RESULTS No Results REASON FOR VISIT refill MEDICAL (GENERAL) HISTORY Type Description Date Medical History Hypertension since age 39 Medical History hx of frequent UTI Medical History osteoarthritis (Left ankle, hands) Medical History Uterine CA s/p hysterectomy and BSO 05/2008, followed with frequent Pap smear, now back to yearly with Latrice Medical History Pain Contract 09/23/2013, Drug screen Nega tive 09/23/2013 Medical History ECHO EF 65% diastolic dysfunction - Dr. Louis - 2010 Medical History colonoscopy03/2011 -- diverticulosis only Medical History intracranial meningioma, s/p rsxn Medical History varicose veins Surgical History complete hysterectomy by Dr. Gutierres 8 Surgical History lymphanectomy at [place] 07/24 Surgical History colposcopy with vaginal biopsy 02/23 Surgical History Intracranial Meningioma 11/18/2015 Surgical History vascular surgery 11/22/2017 Goals Section No Information Health Concerns No Information MEDICAL EQUIPMENT No Information MENTAL STATUS No Information FUNCTIONAL STATUS No Information ASSESSMENTS Encounter Date Diagnosis Assessment Notes Treatment Notes Treatm ent Clinical Notes Jul, Post-traumatic osteoarthritis of left ankle (ICD -10 - M19.172) PLAN OF TREATMENT Medication Medication Name Sig Start Date Stop Date Cartia XT 120 MG 1 capsule Orally Once a day for 90 Tramadol HCl 50MG 1 tablet as needed Orally every 8 hrs MDD:3 fo r 28 days Proctosol HC 2.5% 1 application to affected ar ea Rectal Twice a day as needed for 30 Macrobid 100 MG 1 capsule at bedtime with food Orally bi d for 5 days Oct, Lisinopril 20 MG 1 tablet Orally Once a day for 90 Naproxen 250 MG 1 tablet Orally Twice a day Insurance Providers Payer Name Payer Address Payer Phone Insured Name Patient Relati onship to Insured Coverage Start Date Coverage End Date [facility] [address] [facility] [address] [place] MEDICARE Part A and B [address] [facility] [phone] BRYN BRITO self
--- OUTSIDE RECORDS SUMMARY | 2020-10-03 06:17 | CCD | Continuity of Care Document ---
Author Author Dominique MONTALVO DO Organization Unknown Address [address] [facility] [place], [address] [place] [address] Phone [phone] Care Team Providers Care Community Artist Name Role Phone Carolin Becerra M.D. [facility] [phone] Problems Active Problems Provider Date Diverticular disease of colon Azael Agudelo MD Onset: Screening for malignant neoplasm of colon Azael Agudelo MD Onset: 11/30/2016 Digestive symptom Azael Agudelo MD Onset: 11/30/2016 Epistaxis Srinivas Reyna MD Onset: 01/28/2017 Social History Type Date Description Comments Sex Unknown ETOH Use Denies alcohol use Tobacco Use Start: Unknown Patient has never smoked Recreational Drug Use Denies Drug Use Allergies, Adverse Reactions, Alerts Description No Known Drug Allergies Medications Active Medications SIG Qnty Indications Ordering Provide r Date Tramadol HCL 50mg Tablets 3 q 4-6 hrs prn 60tabs Unknown Lisinopril 20mg Tablets 1 qd Unknown Naproxen 250mg Tablets 1 b id as needed Unknown Cartia XT 120mg Caps ER 24HR 1 qd Unknown Calcium 600+D 033-116yd-Knhd Table ts 2 by mouth once a day Unknown Immunizations Description No Information Available Vital Signs Date Vital Result Comment 09/01/2020 2:15pm BP Systolic 122 mmHg BP Diastolic 58 mmHg Height 64 inches 5'4" Weight 257.50 lb BMI (Body Mass Index) 44.2 kg/m2 [place] Body Weight 120 lb Weight 116.802 kg BSA (Body Surface Area) 2.18 m2 03/31/2018 2:14pm BP Systolic 113 mmHg BP Diastolic 59 mmHg Height 64 inches 5'4" Weight 252.38 lb BMI (Body Mass Index) 43.3 kg/m2 [place] Body Weight 120 lb Weight 114.477 kg BSA (Body Surface Area) 2.16 m2 Results Description No Information Available Procedures Description No Information Available Medical Devices Description No Information Available Encounters Description No Information Available Assessments Description No Information Available Plan of Treatment 03/31/2018 - Neetu Lindo M.D.* I83.812 Varicose veins of left lower extremity with pain* Comments:* Radio frequency ablation with lobectomy in November and subsequently has had some pain and swelling and the inner thigh region. Patient notes that this is improving and she has been wearing compression stockings which helped also. The ulcers in her left inner knee and thigh area are well-healed and almost completely gone. Patient will follow-up around the holidays for a right greater saphenous vein radiofrequency ablation with phlebectomy. * I87.2 Venous insufficiency (chronic) (peripheral) Functional Status Description No Information Available Mental Status Description No Information Available Referrals Refer to Reason for Referral Status Appt Date Dre Bae MD 13 x 14cm MASS, LEFT ARM Created 09/01/[address] [address] [phone]
--- OUTSIDE RECORDS SUMMARY | 2020-10-03 06:17 | CCD ---
Author Author [facility] Organization [facility] Address Unknown Phone Unavailable Care Team Providers Care Consulting Systems Engineer Name Role Phone Carolin Becerra Unavailable PROBLEMS Type Condition ICD9-CM Code HJA01-YL Code Onset Dates Condition S tatus SNOMED Code Notes Problem History of uterine cancer Z85.42 Active 502071 009 Problem History of meningioma of the brain Z86.011 Activ e 635487941 Problem Allergic rhinitis J30.9 Active 19085592 Problem Symptomatic varicose veins of right lower extremity I83.891 Active 679787631 Problem Venous stasis dermatitis of both lower extremities I87.2 Active 63337439 Problem Essential (primary) hypertension I10 Active 57428929 Problem Other chronic pain G89.29 Active 89081595 Problem Morbid (severe) obesity due to excess calories E66 .01 Active 187860366 Problem 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 Sexual [...] Notes Start Da te End Date Status Macrobid 100 MG 1 capsule with food Orally every 12 hrs for 5 da y(s) January, Not-Taking Lisinopril 20 MG 1 tablet Orally Once a day for 90 Active Calcium 500+D High Potency 500-400 MG-UNIT 2 tabs Orally daily May, Active CeraVe Active Cartia XT 120 MG 1 capsule Orally Once a day for 90 Active Tramadol HCl 50MG 1 tablet as needed Orally every 8 hrs MDD:3 for 28 days Active Aquaphor - as directed Externally Daily for 30 day(s) 27 N 2016 Not-Taking Naproxen 250 MG 1 tablet Orally Twice a day Active Proctosol HC 2.5% 1 application to affected ar ea Rectal Twice a day as needed for 30 Active PROCEDURES No Information RESULTS No Results REASON FOR VISIT pain in arm MEDICAL (GENERAL) HISTORY Type Description Date Medical [...] Surgical History complete hysterectomy by Dr. Gutierres Surgical History lymphanectomy at [place] 07/24 Surgical History colposcopy with vaginal biopsy 02/23 Surgical History Intracranial Meningioma 11/18/2015 Surgical History vascular surgery 11/22/2017 Goals Section No Information Health Concerns No Information MEDICAL EQUIPMENT No Information MENTAL STATUS No Information FUNCTIONAL STATUS No Information ASSESSMENTS No Information PLAN OF TREATMENT Next Appt Details Provider Name:Carolin Becerra, 2020-08-23 1 0:45:00 AM, [address] [place], [address], Insurance Providers Payer Name Payer Address Payer Phone Insured Name Patient Relati onship to Insured Coverage Start Date Coverage End Date [facility] [address] [facility] [id number] [place] MEDICARE Part A and B [address] [facility] [address] [phone] BRYN BRITO self
--- OUTSIDE RECORDS SUMMARY | 2020-10-03 06:17 | CCD ---
Author Author [facility] Organization [facility] Address Unknown Phone Unavailable Care Team Providers Care Accounting Machine Operator Name Role Phone Carolin Becerra Unavailable PROBLEMS Type Condition ICD9-CM Code [id number] Code Onset Dates Condition S tatus SNOMED Code Notes Problem History of uterine cancer Z85.42 Active 669208 009 Problem History of meningioma of the brain Z86.011 Activ e 529594737 Problem Allergic rhinitis J30.9 Active 70482634 Problem Symptomatic varicose veins of right lower extremity I83.891 Active 029969739 Problem Venous stasis dermatitis of both lower extremities I87.2 Active 87774114 Problem Essential (primary) hypertension I10 Active 73427971 Problem Other chronic pain G89.29 Active 31345060 Problem Morbid (severe) obesity due to excess calories E66 .01 Active 626315103 Problem 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 [address] [place] [address] Aug, Carolin Becerra IMMUNIZATIONS Vaccine Route Administration [...] College Language: Question Answer Notes Languages spoken: Uzbek Jain: Question Answer Notes Jain No sabianism beliefs that would impact health [...] Notes Start Da te End Date Status CeraVe Active Aquaphor - as directed Externally Daily for 30 day(s) 2016 Not-Taking Cartia XT 120 MG 1 capsule Orally Once a day for 90 Active Proctosol HC 2.5% 1 application to affected ar ea Rectal Twice a day as needed for 30 Active Tramadol HCl 50MG 1 tablet as needed Orally every 8 hrs MDD:3 for 28 days Active Lisinopril 20 MG 1 tablet Orally Once a day for 90 Active Calcium 500+D High Potency 500-400 MG-UNIT 2 tabs Orally daily May, Active Naproxen 250 MG 1 tablet Orally Twice a day Active Macrobid 100 MG 1 capsule with food Orally every 12 hrs for 5 da y(s) January, Not-Taking PROCEDURES No Information RESULTS No Results REASON FOR VISIT US results MEDICAL (GENERAL) HISTORY Type Description Date Medical [...] Information ASSESSMENTS No Information PLAN OF TREATMENT Medication Medication Name Sig Start Date Stop Date Tramadol HCl 50MG 1 tablet as needed Orally every 8 hrs MDD:3 fo r 28 days Insurance Providers Payer Name Payer Address Payer Phone Insured Name Patient Relati onship to Insured Coverage Start Date Coverage End Date MEDICARE Part A and B [address] [facility] [phone] [facility] [address] [facility] [id number] [place]
--- OUTSIDE RECORDS SUMMARY | 2020-10-03 06:17 | CCD | Continuity of Care Document ---
Author Author Dominique JACOB PAMandyC Organization Unknown Address [address] [place] [address] Phone [phone] Care Team Providers Care Cnc Mill Programmer Name Role Phone Carolin Becerra MD [facility] [phone] Problems Active Problems Provider Date Essential hypertension Onset: 11/21/2016 Social History Type Date Description Comments Sex Unknown ETOH Use Denies alcohol use Tobacco Use Start: Unknown Patient has never smoked Smoking Status Reviewed: 06/25/19 Patient has never smoked Allergies, Adverse Reactions, Alerts Description No Known Drug Allergies Medications Active Medications SIG Qnty Indications Ordering Provide r Date Euflexxa 20mg/2ML Soln Prefill Syr chucho left knee #1 03/15/2020 klf/rm, #2 klf/rm 03/21/2020 #3 klf/ef 03/29/2020 Antonio Jacob MD 07/02/2019 Lisinopril 10mg Tablets 1 by mouth every day Unknown Cartia XT 120mg Caps ER 24HR Unknown Naproxen 250mg Tablets twice a day Unknown Tramadol HCL 50mg Tablets 1 every 4-6 hours as needed pain Unknown Calcium 500 + D3 [id number] Tablets Unknown Immunizations Description No Information Available Vital Signs Date Vital Result Comment 06/28/2020 3:46pm Body Temperature 96.7 F Height 64.5 inches 5'4.50" Weight 256.12 lb BMI (Body Mass Index) 43.3 kg/m2 06/25/2019 9:17am Body Temperature 97.5 F Height 64 inches 5'4" Weight 255.00 lb BMI (Body Mass Index) 43.8 kg/m2 Results Description No Information Available Procedures Date Code Description Status 06/28/2020 35359 X-Ray Hips Bilateral With Pelvis 3-4 Views Completed 06/28/2020 Inject/Drain Joint/Bursa Major C ompleted 03/29/2020 Inject/Drain Joint/Bursa Major C ompleted 03/21/2020 Inject/Drain Joint/Bursa Major C ompleted 03/15/2020 Inject/Drain Joint/Bursa Major C ompleted Medical Devices Description No Information Available Encounters Type Date Location Provider Dx Diagnosis Office Visit 06/28/2020 2:30p [place] Ayesha L. LLOYD JacobC M70.61 Trochanteric bursitis, right hip M70.62 Trochanteric bursitis, left hip M16.0 Bilateral primary osteoarthr itis of hip Office Visit 03/29/2020 9:30a [place] Ayesha L. Cecil PA-C M17.12 Unilateral primary osteoarthritis, left knee Office Visit 03/21/2020 2:30p [place] Ayesha L. ITALO Jacob-C M17.12 Unilateral primary osteoarthritis, left knee Office Visit 03/15/2020 8:45a [place] Ayseha L. Cecil PA-C M17.12 Unilateral primary osteoarthritis, left knee Assessments Date Code Description Provider 06/28/2020 M70.61 Trochanteric bursitis, right hip Ayesha L. Cecil PA-C 06/28/2020 M70.62 Trochanteric bursitis, left hip Ayesha L. Cecil PA-C 06/28/2020 M16.0 Bilateral primary osteoarthritis of hip Ayesha L. Cecil PA-C 03/29/2020 M17.12 Unilateral primary osteoarthriti s, left knee Ayesha L. Cecil PA-C 03/21/2020 M17.12 Unilateral primary osteoarthriti s, left knee Ayesha L. Cecil PA-C 03/15/2020 M17.12 Unilateral primary osteoarthriti s, left knee Ayesha L. SMITH Jacob Plan of Treatment Future Appointment(s):* 07/27/2020 1:30 pm - Ayesha Jacob PA-C at [facility] 06/28/2020 - Ayesha Jacob PA-C* M70.61 Trochanteric bursitis, right hip* Follow up:* [place] hip recheck/left knee eval with [facility] (next available) * M70.62 Trochanteric bursitis, left hip * M16.0 Bilateral primary osteoarthritis of hip Functional Status Description No Information Available Mental Status Description No Information Available Referrals Refer to Reason for Referral Status Appt Date Ayesha Jacob PA-C EUFLEXXA LT KNEE INJ NO AUTH REQUIRED, P ASSING TO [facility]. LM Created [address] [place] [address] [address] [place] [address] [phone]
--- OUTSIDE RECORDS SUMMARY | 2020-10-03 06:17 | CCD ---
Author Author [facility] Organization [facility] Address Unknown Phone Unavailable Care Team Providers Care Supervisor Parking Lot Name Role Phone Stephany Rivers Unavailable PROBLEMS Type Condition ICD9-CM Code [id number] Code Onset Dates Condition S tatus SNOMED Code Notes Problem History of uterine cancer Z85.42 Active 393664 009 Problem History of meningioma of the brain Z86.011 Activ e 528137780 Problem Allergic rhinitis J30.9 Active 02329354 Problem Symptomatic varicose veins of right lower extremity I83.891 Active 211583385 Problem Venous stasis dermatitis of both lower extremities I87.2 Active 83614620 Problem Essential (primary) hypertension I10 Active 74696563 Problem Other chronic pain G89.29 Active 60248764 Problem Morbid (severe) obesity due to excess calories E66 .01 Active 751875893 Problem Post-traumatic osteoarthritis of left ankle M19.17 2 Active 205551058 ALLERGIES No Known Allergies ENCOUNTERS from 1955 to 2020-08-06 Encounter Location Date Provider Diagnosis [facility] [address] [place] [address] Jul, Stephany Silvestre IMMUNIZATIONS Vaccine Route Administration Date Status TDAP [...] College Language: Question Answer Notes Languages spoken: Namibian Spiritism: Question Answer Notes Spiritism No taoist beliefs that would impact health care. Sexual [...] Notes Start Da te End Date Status Aquaphor - as directed Externally Daily for 30 day(s) 27 N ov2016 Not-Taking Cartia XT 120 MG 1 capsule Orally Once a day for 90 Active Lisinopril 20 MG 1 tablet Orally Once a day for 90 Active Cefdinir 300 MG 1 cap Orally twice daily for 7 day(s) 18 N ov2019 Active CeraVe Active Proctosol HC 2.5% 1 application to affected ar ea Rectal Twice a day as needed for 30 Active Macrobid 100 MG 1 capsule with food Orally every 12 hrs for 5 da y(s) January, Not-Taking Calcium 500+D High Potency 500-400 MG-UNIT 2 tabs Orally daily May, Active Naproxen 250 MG 1 tablet Orally Twice a day Active Tramadol HCl 50MG 1 tablet as needed Orally every 8 hrs MDD:3 for 28 days Active PROCEDURES No Information RESULTS No Results REASON FOR VISIT test results MEDICAL (GENERAL) HISTORY Type Description Date [...] by Dr. Gutierres Surgical History lymphanectomy at [place] 07/24 Surgical History colposcopy with vaginal biopsy 02/23 Surgical History Intracranial Meningioma 11/18/2015 Surgical History vascular surgery 11/22/2017 Goals Section No Information Health Concerns No Information MEDICAL EQUIPMENT No Information MENTAL STATUS No Information FUNCTIONAL STATUS No Information ASSESSMENTS No Information PLAN OF TREATMENT Medication Medication Name Sig Start Date Stop Date Cefdinir 300 MG 1 cap Orally twice daily for 7 day(s) 18 Jul, Next Appt Details Provider Name:Carolin Becerra, 2020-08-09 0 2:00:00 PM, [address] [place], [address], Insurance Providers Payer Name Payer Address Payer Phone Insured Name Patient Relati onship to Insured Coverage Start Date Coverage End Date MEDICARE Part A and B [address] [facility][1] [id number] [facility] [address] [facility] [address] balbina brito
--- OUTSIDE RECORDS SUMMARY | 2020-10-03 06:17 | CCD ---
Author Author [facility] Organization [facility] Address Unknown Phone Unavailable Care Team Providers Care Flexographic Press Operator Name Role Phone Carolin Becerra Unavailable PROBLEMS Type Condition ICD9-CM Code ULP59-IG Code Onset Dates Condition S tatus SNOMED Code Notes Problem History of uterine cancer Z85.42 Active 768790 009 Problem History of meningioma of the brain Z86.011 Activ e 272760077 Problem Allergic rhinitis J30.9 Active 11319629 Problem Symptomatic varicose veins of right lower extremity I83.891 Active 379919701 Problem Venous stasis dermatitis of both lower extremities I87.2 Active 41232725 Problem Essential (primary) hypertension I10 Active 63456917 Problem Other chronic pain G89.29 Active 09281683 Problem Morbid (severe) obesity due to excess calories E66 .01 Active 255237292 Problem Post-traumatic osteoarthritis of left ankle M19.17 2 Active 679560555 ALLERGIES No Known Allergies ENCOUNTERS from 1955 to 2020-08-27 Encounter Location Date Provider Diagnosis [facility] [address] [place] [address] Aug, Carolin Becerra Post-traumatic osteoarthritis of left an [...] College Language: Question Answer Notes Languages spoken: Lithuanian Gnosticism: Question Answer Notes Gnosticism No catholic beliefs that would impact health care. Sexual [...] Notes Treatment Notes Treatm ent Clinical Notes Aug, Post-traumatic osteoarthritis of left ankle (ICD -10 - M19.172) PLAN OF TREATMENT Medication Medication Name Sig Start Date Stop Date Tramadol HCl 50MG 1 tablet as needed Orally every 8 hrs MDD:3 fo r 28 days Insurance Providers Payer Name Payer Address Payer Phone Insured Name Patient Relati onship to Insured Coverage Start Date Coverage End Date [facility] INSURANCE [address] [facility] [address] balbina brito MEDICARE Part A and B [address] [facility] [phone] BRYN BRITO self
--- OUTSIDE RECORDS SUMMARY | 2020-10-03 06:17 | CCD | Continuity of Care Document ---
Author Author Dominique BOWLING PAMandyC Organization Unknown Address [address] [place] [address] Phone [phone] Care Team Providers Care District Loss Prevention Manager Name Role Phone Carolin Becerra MD [facility] [phone] Problems Active Problems Provider Date Essential hypertension Onset: 11/21/2016 Social History Type Date Description Comments Sex Unknown ETOH Use Denies alcohol use Tobacco Use Start: Unknown Patient has never smoked Smoking Status Reviewed: 06/25/19 Patient has never smoked Allergies, Adverse Reactions, Alerts Description No Known Drug Allergies Medications Active Medications SIG Qnty Indications Ordering Provide r Date Diclofenac Sodium 1% Gel apply to left knee as directed one gram three times a day 300gm M70.62 Jose Barbosa MD 07/27/2020 Euflexxa 20mg/2ML Soln Prefill Syr chucho left knee #1 03/15/2020 klf/rm, #2 klf/rm 03/21/2020 #3 klf/ef 03/29/2020 Antonio Bowling MD 07/02/2019 Lisinopril 10mg Tablets 1 by mouth every day Unknown Cartia XT 120mg Caps ER 24HR Unknown Naproxen 250mg Tablets twice a day Unknown Tramadol HCL 50mg Tablets 1 every 4-6 hours as needed pain Unknown Calcium 500 + D3 [id number] Tablets Unknown Immunizations Description No Information Available Vital Signs Date Vital Result Comment 06/28/2020 3:46pm Body Temperature 96.7 F Height 64.5 inches 5'4.50" Weight 256.12 lb BMI (Body Mass Index) 43.3 kg/m2 06/25/2019 9:17am Body Temperature 97.5 F Height 64 inches 5'4" Weight 255.00 lb BMI (Body Mass Index) 43.8 kg/m2 Results Description No Information Available Procedures Date Code Description Status 07/27/2020 91449 X-Ray Knee Complete W/Obliques & Tunnel And/Or Standing Views Completed 07/27/2020 Inject/Drain Joint/Bursa Major C ompleted 06/28/2020 59871 X-Ray Hips Bilateral With Pelvis 3-4 Views Completed 06/28/2020 Inject/Drain Joint/Bursa Major C ompleted 03/29/2020 Inject/Drain Joint/Bursa Major C ompleted 03/21/2020 Inject/Drain Joint/Bursa Major C ompleted 03/15/2020 Inject/Drain Joint/Bursa Major C ompleted Medical Devices Description No Information Available Encounters Type Date Location Provider Dx Diagnosis Office Visit 07/27/2020 1:30p [place] Ayesha L. SMITH Bowling M17.12 Unilateral primary osteoarthritis, left knee M70.61 Trochanteric bursitis, right hip M70.62 Trochanteric bursitis, left hip Office Visit 06/28/2020 2:30p [place] Ayesha L. Cecil PAMandyC M70.61 Trochanteric bursitis, right hip M70.62 Trochanteric bursitis, left hip M16.0 Bilateral primary osteoarthr itis of hip Office Visit 03/29/2020 9:30a [place] Ayesha L. Cecil PA-C M17.12 Unilateral primary osteoarthritis, left knee Office Visit 03/21/2020 2:30p [place] Ayesha L. Cecil PA-C M17.12 Unilateral primary osteoarthritis, left knee Office Visit 03/15/2020 8:45a [place] Ayesha L. Cecil PA-C M17.12 Unilateral primary osteoarthritis, left knee Assessments Date Code Description Provider 07/27/2020 M17.12 Unilateral primary osteoarthriti s, left knee Ayesha L. Cecil PA-C 07/27/2020 M70.61 Trochanteric bursitis, right hip Ayesha L. Cecil PA-C 07/27/2020 M70.62 Trochanteric bursitis, left hip Ayesha L. Cecil PA-C 06/28/2020 M70.61 Trochanteric bursitis, right hip Ayesha Flood. SMITH Bowling 06/28/2020 M70.62 Trochanteric bursitis, left hip Ayesha L. SMITH Bowling 06/28/2020 M16.0 Bilateral primary osteoarthritis of hip Ayesha Lisa SMITH Bowling 03/29/2020 M17.12 Unilateral primary osteoarthriti s, left knee Ayesha L. SMITH Bowling 03/21/2020 M17.12 Unilateral primary osteoarthriti s, left knee Ayesha L. SMITH Bowling 03/15/2020 M17.12 Unilateral primary osteoarthriti s, left knee Ayesha L. SMITH Bowling Plan of Treatment 07/27/2020 - Ayesha Lisa SMITH Bowling* M17.12 Unilateral primary osteoarthritis, left knee * M70.61 Trochanteric bursitis, right hip * M70.62 Trochanteric bursitis, left hip* New Medication:* Diclofenac Sodium 1 % - apply to left knee as directed one gram three times a day * Follow up:* with [facility] for Euflexxa lt knee #1 once insurance approves and on or after 09/30/2020 Functional Status Description No Information Available Mental Status Description No Information Available Referrals Refer to Reason for Referral Status Appt Date Ayesha Bowling PA-C Left knee Euflexxa- no authorization req. C reated [address] [place] [address] [phone] Ayesha Bowling PA-C EUFLEXXA LT KNEE INJ NO AUTH REQUIRED, P ASSING TO [facility]. LM Created [address] [place] [address] [phone]
--- OUTSIDE RECORDS SUMMARY | 2020-10-03 06:17 | CCD | Continuity of Care Document ---
Author Author Dominique BOWLING PAMandyC Organization Unknown Address [address] [place] [address] Phone [phone] Care Team Providers Care Horticulture/Floriculture Teacher Name Role Phone Carolin Becerra MD [facility] [phone] Problems Active Problems Provider Date Essential hypertension [...] needed pain Unknown Calcium 500 + D3 015-311cm-Awch Tablets Unknown Immunizations Description No Information Available Vital Signs Date Vital Result Comment 06/28/2020 3:46pm Body Temperature 96.7 F Height 64.5 inches 5'4.50" Weight 256.12 lb BMI (Body Mass Index) 43.3 kg/m2 06/25/2019 9:17am Body Temperature 97.5 F Height 64 inches 5'4" Weight 255.00 lb BMI (Body Mass Index) 43.8 kg/m2 Results Description No Information Available Procedures Date Code Description Status 07/27/2020 01296 X-Ray Knee Complete W/Obliques & Tunnel And/Or Standing Views Completed 07/27/2020 Inject/Drain Joint/Bursa Major C ompleted 06/28/2020 99419 X-Ray Hips Bilateral With Pelvis 3-4 Views Completed 06/28/2020 Inject/Drain Joint/Bursa Major C ompleted 03/29/2020 Inject/Drain Joint/Bursa Major C ompleted 03/21/2020 Inject/Drain Joint/Bursa Major C ompleted 03/15/2020 Inject/Drain Joint/Bursa Major C ompleted Medical Devices Description No Information Available Encounters Type Date Location Provider Dx Diagnosis Office Visit 07/27/2020 1:30p [place] Ayesha L. Cecil PAMandyC M70.61 Trochanteric bursitis, right hip M70.62 Trochanteric bursitis, left hip M16.0 Bilateral primary osteoarthr itis of hip Office Visit 06/28/2020 2:30p [place] Ayesha L. Cecil PA-C M70.61 Trochanteric bursitis, right hip M70.62 Trochanteric bursitis, left hip M16.0 Bilateral primary osteoarthr itis of hip Office Visit 03/29/2020 9:30a [place] Ayesha L. Cecil PA-C M17.12 Unilateral primary osteoarthritis, left knee Office Visit 03/21/2020 2:30p [place] Ayesha L. Cecil PA-C M17.12 Unilateral primary osteoarthritis, left knee Office Visit 03/15/2020 8:45a [place] Ayesha L. Cecil PA-C M17.12 Unilateral primary osteoarthritis, left knee Assessments Date Code Description Provider 07/27/2020 M70.61 Trochanteric bursitis, right hip Ayesha L. Cecil PA-C 07/27/2020 M70.62 Trochanteric bursitis, left hip Ayesha L. Fish PA-C 07/27/2020 M16.0 Bilateral primary osteoarthritis of hip Yaesha L. Fish PA-C 06/28/2020 M70.61 Trochanteric bursitis, right hip Ayesha L. SMITH Bowling 06/28/2020 M70.62 Trochanteric bursitis, left hip Ayesha L. SMITH Bowling 06/28/2020 M16.0 Bilateral primary osteoarthritis of hip Ayesha L. SMITH Bowling 03/29/2020 M17.12 Unilateral primary osteoarthriti s, left knee Ayesha L. SMITH Bowling 03/21/2020 M17.12 Unilateral primary osteoarthriti s, left knee Ayesha L. SMITH Bowling 03/15/2020 M17.12 Unilateral primary osteoarthriti s, left knee Ayesha L. SMITH Bowling Plan of Treatment 07/27/2020 - Ayesha Lisa SMITH Bowling* M70.61 Trochanteric bursitis, right hip * M70.62 Trochanteric bursitis, left hip* New Medication:* Diclofenac Sodium 1 % - apply to left knee as directed one gram three times a day * New Orders:* Euflexxa LT Knee Injection, Ordered: 07/27/20 * Follow up:* with [facility] for Euflexxa lt knee #1 once insurance approves and on or after 09/30/2020 * M16.0 Bilateral primary osteoarthritis of hip Functional Status Description No Information Available Mental Status Description No Information Available Referrals Refer to Dr Reason for Referral Status Appt Date Ayesha Bowling PA-C EUFLEXXA LT KNEE INJ NO AUTH REQUIRED, P ASSING TO [facility]. Created [facility] [address] [place] [address] [phone]
--- OUTSIDE RECORDS SUMMARY | 2020-10-03 06:17 | CCD ---
Author Author [employer] [facility] Organization [facility] Address Unknown Phone Unavailable Care Team Providers Care Lead Carpenter Name Role Phone Carolin Becerra Unavailable PROBLEMS Type Condition ICD9-CM Code LKP45-BW Code Onset Dates Condition S tatus SNOMED Code Notes Problem History of uterine cancer Z85.42 Active 261538 009 Problem History of meningioma of the brain Z86.011 Activ e 084938685 Problem Allergic rhinitis J30.9 Active 08750738 Problem Symptomatic varicose veins of right lower extremity I83.891 Active 264323343 Problem Venous stasis dermatitis of both lower extremities I87.2 Active 95046728 Problem Essential (primary) hypertension I10 Active 13889923 Problem Other chronic pain G89.29 Active 55255886 Problem Morbid (severe) obesity due to excess calories E66 .01 Active 870177016 Problem Post-traumatic osteoarthritis of left ankle M19.17 2 Active 931690696 ALLERGIES No Known Allergies ENCOUNTERS from 1955 to 2020-08-25 Encounter Location Date Provider Diagnosis [facility] [address] [place] [address] Aug, Carolin Becerra Mass of left upper extremity R22.32 and Stage 3 chronic kidney disease, unspecified whether stage 3a or 3b CKD N18.30 IMMUNIZATIONS Vaccine Route Administration Date Status TDAP [...] College Language: Question Answer Notes Languages spoken: Cuban Moravian: Question Answer Notes Moravian No faith beliefs that would impact health care. Sexual [...] REASON FOR REFERRAL No Information VITAL SIGNS Weight 259.6 lbs Aug, Height 64 in Aug, BMI 44.56 kg/m2 Aug, Heart Rate 77 /min Aug, Respiratory Rate 18 /min Aug, Temperature 98.1 degrees Fahrenheit Aug, Oximetry 96 Aug, Blood pressure systolic 131 mm Hg Aug, Blood pressure diastolic 77 mm Hg Aug, MEDICATIONS Medication SIG (Take, Route, Frequency, Duration) [...] Information RESULTS No Results REASON FOR VISIT [facility] MEDICAL (GENERAL) HISTORY Type Description Date Medical History Hypertension since age 39 Medical History hx of frequent UTI Medical History osteoarthritis (Left ankle, hands) Medical History Uterine CA s/p hysterectomy and BSO 05/2008, followed with frequent Pap smear, now back to yearly with [facility] Medical History Pain Contract 09/23/2013, Drug screen [...] Treatment Notes Treatm ent Clinical Notes Aug, Mass of left upper extremity (ICD-10 - R22.32) I suspect that this is a lipoma, benefits extraordinarily large, she is denies that it's changed any in size, I suspect that her soreness is from the flu shot as most of her exam is tenderness along the deltoid, but given the size of the mass, send to surgery, for further Aug, Stage 3 chronic kidney disea se, unspecified whether stage 3a or 3b CKD (ICD-10 - N18.30) Suspect this is hypertensive nephropathy, however, given worsening renal function and a possible history of hydronephrosis, not present on CT urogram. We'll go ahead and repeat the renal ultrasound and send her to nephrology for eval PLAN OF TREATMENT Treatment Notes Assessment Notes Clinical Notes Mass of left upper extremity I suspect t hat this is a lipoma, benefits extraordinarily large, she is denies that it's changed any in size, I suspect that her soreness is from the flu shot as most of her exam is tenderness along the deltoid, but given the size of the mass, send to surgery, for further Stage 3 chronic kidney disease, unspecified whether stage 3a or 3b CKD Suspect this is hypertensive nephropathy, however, given worsening renal function and a possible history of hydronephrosis, not present on CT urogram. We'll go ahead and repeat the renal ultrasound and send her to nephrology for eval Treatment Notes Test Name Order Date [facility] EXTREMITY US 2020-08-25 RENAL ULTRASOUND 2020-08-25 Next Appt Details 4 Weeks Reason:left arm mass Follow Up:4 Weeksleft arm mass Insurance Providers Payer Name Payer Address Payer Phone Insured Name Patient Relati onship to Insured Coverage Start Date Coverage End Date MEDICARE Part A and B [address] [facility] [address] [facility] [address] [facility] [address] balbina brito
--- OUTSIDE RECORDS SUMMARY | 2020-10-03 06:17 | CCD ---
Author Author [facility] Organization [facility] Address Unknown Phone Unavailable Care Team Providers Care Retail Specialist Name Role Phone Carolin Becerra Unavailable PROBLEMS Type Condition ICD9-CM Code CZX86-PG Code Onset Dates Condition S tatus SNOMED Code Notes Problem History of uterine cancer Z85.42 Active 385732 009 Problem History of meningioma of the brain Z86.011 Activ e 631019178 Problem Allergic rhinitis J30.9 Active 34044303 Problem Symptomatic varicose veins of right lower extremity I83.891 Active 309971807 Problem Venous stasis dermatitis of both lower extremities I87.2 Active 14023864 Problem Essential (primary) hypertension I10 Active 42990400 Problem Other chronic pain G89.29 Active 49344919 Problem Morbid (severe) obesity due to excess calories E66 .01 Active 458693186 Problem Post-traumatic osteoarthritis of left ankle M19.17 2 Active 391644989 ALLERGIES No Known Allergies ENCOUNTERS from 1955 to 2020-08-24 Encounter Location Date Provider Diagnosis [address] [address] Aug, Carolin Becerra IMMUNIZATIONS Vaccine Route Administration [...] College Language: Question Answer Notes Languages spoken: Croatian Mormonism: Question Answer Notes Mormonism No gnosticism beliefs that would impact health care. Sexual [...] Information RESULTS No Results REASON FOR VISIT ER Visit [facility] 08/20; arm pain MEDICAL (GENERAL) HISTORY Type Description Date Medical [...] by Dr. Gutierres Surgical History lymphanectomy at [place] 07/24 Surgical History colposcopy with vaginal biopsy 02/23 Surgical History Intracranial Meningioma 11/18/2015 Surgical History vascular surgery 11/22/2017 Goals Section No Information Health Concerns No Information MEDICAL EQUIPMENT No Information MENTAL STATUS No Information FUNCTIONAL STATUS No Information ASSESSMENTS No Information PLAN OF TREATMENT No Information Insurance Providers Payer Name Payer Address Payer Phone Insured Name Patient Relati onship to Insured Coverage Start Date Coverage End Date [facility] HEALTH INSURANCE [address] [facility] [address] bal[place]ina brito MEDICARE Part A and B [address] [facility] [id number] [phone] BRYN BRITO self
--- OUTSIDE RECORDS SUMMARY | 2020-10-03 06:17 | CCD ---
Author Author [facility] Organization [facility] [employer] [facility] Address Unknown Phone Unavailable Care Team Providers Care Well Service Pump Equipment Operator Name Role Phone Carolin Becerra Unavailable PROBLEMS Type Condition ICD9-CM Code [id number] Code Onset Dates Condition S tatus SNOMED Code Notes Problem History of uterine cancer Z85.42 Active 912180 009 Problem History of meningioma of the brain Z86.011 Activ e 544478760 Problem Allergic rhinitis J30.9 Active 08230005 Problem Symptomatic varicose veins of right lower extremity I83.891 Active 488154473 Problem Venous stasis dermatitis of both lower extremities I87.2 Active 12731024 Problem Essential (primary) hypertension I10 Active 74954078 Problem Other chronic pain G89.29 Active 63384922 Problem Morbid (severe) obesity due to excess calories E66 .01 Active 990390137 Problem Post-traumatic osteoarthritis of left ankle M19.17 2 Active 666199402 ALLERGIES No Known Allergies ENCOUNTERS from 1955 to 2020-08-18 Encounter Location Date Provider Diagnosis [facility] [id number] [place] [id number] Jul, Carolin Becerra Stage 3 chronic kidney disease, unspecif ied whether stage 3a or 3b CKD N18.30 and Need for influenza vaccination Z23 IMMUNIZATIONS Vaccine Route Administration Date Status TDAP [...] College Language: Question Answer Notes Languages spoken: [place] Islander Methodist: Question Answer Notes Methodist No orthodox beliefs that would impact health care. Sexual [...] FOR REFERRAL No Information VITAL SIGNS Weight 257 lbs Jul, Height 64 in Jul, BMI 44.11 kg/m2 Jul, Heart Rate 79 /min Jul, Respiratory Rate 18 /min Jul, Temperature 97.5 degrees Fahrenheit Jul, Oximetry 99 Jul, Blood pressure systolic 132 mm Hg Jul, Blood pressure diastolic 68 manual mm Hg Jul, MEDICATIONS Medication SIG (Take, Route, Frequency, Duration) [...] for 30 Active PROCEDURES No Information RESULTS Component Value Reference Range PHOSPHOROUS LEVEL Reviewed date:08/23/2020 07:30:50 Interpretation:Normal Performing Lab:[facility], [facility] [id number] , ,[place] [address] PHOSPHORUS LEVEL 3.3 2.5-4.9 UA URINALYSIS Reviewed date:08/23/2020 07:30:32 Interpretation:7 WBC, 2 RBC, 1+ bacteria, 2 squam Performing Lab:[facility] [address] [address] , ,[place] [address] Comprehensive Metabolic Profile (CMP) Reviewed date:08/24/2020 08:45:30 Interpretation:Creatine 1.53 Performing Lab:[facility] [address] [address] , ,[facility] GLUCOSE, FASTING 88 70-100 BLOOD UREA NITROGEN 27 7-18 CREATININE FOR GFR 1.53 0.55-1.30 GLOMERULAR FILTRATION RATE 36.2 >45 SODIUM LEVEL 141 136-145 POTASSIUM SERUM 4.6 3.5-5.1 CHLORIDE LEVEL 107 98-107 CARBON DIOXIDE LEVEL 30 21-32 CALCIUM LEVEL 9.3 8.8-10.2 AST/SGOT 20 7-37 ALT/SGPT 29 12-78 ALKALINE PHOSPHATASE 82 45-117 BILIRUBIN,TOTAL 0.5 0.2-1.0 TOTAL PROTEIN 6.6 6.4-8.2 ALBUMIN 3.7 3.2-5.2 ALBUMIN/GLOBULIN RATIO 1.3 1.2-2.2 MAGNESIUM LEVEL Reviewed date:08/26/2020 13:11:18 Interpretation:2.1 Performing Lab:[facility] [address] [address] , ,[place] [address] MAGNESIUM LEVEL 2.1 1.8-2.4 REASON FOR VISIT follow up from visit 08/03/2020 MEDICAL (GENERAL) HISTORY Type Description Date Medical History Hypertension since age 39 Medical History hx of frequent UTI Medical History osteoarthritis (Left ankle, hands) Medical History Uterine CA s/p hysterectomy and BSO 05/2008, followed with frequent Pap smear, now back to yearly with [facility] Medical History Pain Contract 09/23/2013, Drug screen [...] Treatment Notes Treatm ent Clinical Notes Jul, Stage 3 chronic kidney disea se, unspecified whether stage 3a or 3b CKD (ICD-10 - N18.30) unclear etiology of decreasing renal function, willl do above w/u dispo pending results Jul, Need for influenza vaccination (ICD-10 - Z23) Patient was offered the above vaccination. We extensively discussed the risks and benefits of the vaccination. The patient declines to be immunized today. PLAN OF TREATMENT Treatment Notes Assessment Notes Clinical Notes Stage 3 chronic kidney disease, unspecified whether stage 3a or 3b CKD unclear etiology of decreasing renal function, willl do above w/u dispo pending results Need for influenza vaccination Patient w as offered the above vaccination. We extensively discussed the risks and benefits of the vaccination. The patient declines to be immunized today. Treatment Notes Test Name Order Date PHOSPHOROUS LEVEL 2020-08-18 Comprehensive Metabolic Profile (CMP) 2020-08-18 MAGNESIUM LEVEL 2020-08-18 UA URINALYSIS 2020-08-18 Next Appt Details 2 Weeks Reason:CKD Provider Name:Carolin Becerra, 2020-08-23 1 0:45:00 AM, [address] [place], [address], Follow Up:2 WeeksCKD Insurance Providers Payer Name Payer Address Payer Phone Insured Name Patient Relati onship to Insured Coverage Start Date Coverage End Date MEDICARE Part A and B [address] [facility] [id number] [facility] [address] [facility] [id number] [place] [address]
--- OUTSIDE RECORDS SUMMARY | 2020-10-03 06:17 | CCD ---
Author Author [facility] Organization [facility] Address Unknown Phone Unavailable Care Team Providers Care Events And Promotions Assistant Name Role Phone Stephany Rivers Unavailable PROBLEMS Type Condition ICD9-CM Code [id number] Code Onset Dates Condition S tatus SNOMED Code Notes Problem History of uterine cancer Z85.42 Active 219823 009 Problem History of meningioma of the brain Z86.011 Activ e 425375594 Problem Allergic rhinitis J30.9 Active 70374140 Problem Symptomatic varicose veins of right lower extremity I83.891 Active 624008005 Problem Venous stasis dermatitis of both lower extremities I87.2 Active 43884790 Problem Essential (primary) hypertension I10 Active 85378893 Problem Other chronic pain G89.29 Active 09393724 Problem Morbid (severe) obesity due to excess calories E66 .01 Active 924910055 Problem Post-traumatic osteoarthritis of left ankle M19.17 2 Active 095353455 ALLERGIES No Known Allergies ENCOUNTERS from 1955 to 2020-08-06 Encounter Location Date Provider Diagnosis [facility] [address] [place] [phone] Jul, Stephany Lovettister Urinary frequency R35.0 and Glucosuria R 81 IMMUNIZATIONS Vaccine Route Administration Date Status TDAP [...] College Language: Question Answer Notes Languages spoken: Bengali Taoism: Question Answer Notes Taoism No latter-day beliefs that would impact health care. Sexual [...] FOR REFERRAL No Information VITAL SIGNS Weight 258.6 lbs Jul, Height 64 in Jul, BMI 44.38 kg/m2 Jul, Heart Rate 71 /min Jul, Respiratory Rate 18 /min Jul, Temperature 97.8 degrees Fahrenheit Jul, Oximetry 97 Jul, Blood pressure systolic 110 mm Hg Jul, Blood pressure diastolic 76 mm Hg Jul, MEDICATIONS Medication SIG (Take, Route, Frequency, Duration) Notes Start Da te End Date Status Aquaphor - as directed Externally Daily for 30 day(s) 27 N 2016 Not-Taking Cartia XT 120 MG 1 capsule Orally Once a day for 90 Active Lisinopril 20 MG 1 tablet Orally Once a day for 90 Active Cefdinir 300 MG 1 cap Orally twice daily for 7 day(s) 18 N 2019 Active CeraVe Active Proctosol HC 2.5% 1 [...] 28 days Active PROCEDURES No Information RESULTS Component Value Reference Range Urinalysis, no micro Reviewed date:08/03/2020 16:09:09 Interpretation: Performing Lab:[facility], ,[place] [address] Spec gravity 1.020 1.002 - 1.035 pH 5 5.0 - 9.0 Leukocyte 2+ Negative - Nitrate neg Negative - Protein trace Negative - mg/dl Glucose 50 Negative - mg/dl Ketones neg Negative - mg/dl Urobili neg Normal - mg/dl Bilirubin neg Negative - Blood trace Negative - Internal QC Acceptable (Y/N) yes Fingerstick blood sugar Reviewed date:08/03/2020 16:14:52 Interpretation: Performing Lab:[facility], ,[place] [address] Glucose 93 70 - 106 mg/dl URINE CULTURE Reviewed date:08/05/2020 15:34:56 Interpretation:SPECIMEN APPEARS CONTAMINATED Performing Lab:[facility], [facility] [address] [facility] [id number] , ,[place] [address] REASON FOR VISIT uti symptoms; lower bad ache MEDICAL (GENERAL) HISTORY Type Description Date Medical [...] by Dr. Gutierres Surgical History lymphanectomy at [place] 07/24 Surgical History colposcopy with vaginal biopsy 02/23 Surgical History Intracranial Meningioma 11/18/2015 Surgical History vascular surgery 11/22/2017 Goals Section No Information Health Concerns No Information MEDICAL EQUIPMENT No Information MENTAL STATUS No Information FUNCTIONAL STATUS No Information ASSESSMENTS Encounter Date Diagnosis Assessment Notes Treatment Notes Treatm ent Clinical Notes Jul, Urinary frequency (ICD-10 - R35.0) UTI sxs and glucosuria. UA shows leuks and blood. Will tx for UTI using cefdinir after review of renal function (GFR=42.8) and UAC from 10/2019 which showed e.coli growth susceptible to cephalosporins. Will get labs for renal function and A1C to further eval glucosuria. Increase fluid hydration. F/u with PCP in 1 week. ER for new or worsening sxs. Patient educated on diagnosis, medications, treatments, and expected outcomes. Patient educated on risks, SE/AE, benefits, alternatives of regimen. Discussed emergent signs and symptoms and to seek emergency medical attention if they occur. Patient voiced understanding and had all questions answered. Jul, Glucosuria (ICD-10 - R81) PLAN OF TREATMENT Medication Medication Name Sig Start Date Stop Date Cefdinir 300 MG 1 cap Orally twice daily for 7 day(s) Jul, Treatment Notes Assessment Notes Clinical Notes Urinary frequency UTI sxs and glucosuria. UA s hows leuks and blood. Will tx for UTI using cefdinir after review of renal function (GFR=42.8) and UAC from 10/2019 which showed e.coli growth susceptible to cephalosporins. Will get labs for renal function and A1C to further eval glucosuria. Increase fluid hydration. F/u with PCP in 1 week. ER for new or worsening sxs. Patient educated on diagnosis, medications, treatments, and expected outcomes. Patient educated on risks, SE/AE, benefits, alternatives of regimen. Discussed emergent signs and symptoms and to seek emergency medical attention if they occur. Patient voiced understanding and had all questions answered. Treatment Notes Test Name Order Date HEMOGLOBIN A1c 2020-08-06 Comprehensive Metabolic Profile (CMP) 2020-08-06 CBC with Auto Differential 2020-08-06 Next Appt Details 1 Week Reason: Provider Name:Carolin Becerra, 2020-08-09 0 2:00:00 PM, [address] [place], [address], Insurance Providers Payer Name Payer Address Payer Phone Insured Name Patient Relati onship to Insured Coverage Start Date Coverage End Date MEDICARE Part A and B [address] [facility] [id number] [facility] [address] [facility] [id number] [place]
--- OUTSIDE RECORDS SUMMARY | 2020-10-03 06:18 | CCD ---
Author Author [facility] Organization [facility] Address Unknown Phone Unavailable Care Team Providers Care Knife Finisher Name Role Phone Bj Austin MD Unavailable Unavailable Bj Austin MD Unavailable Unavailable Bj Austin MD Unavailable Unavailable Bj Austin MD Unavailable Unavailable Bj Austin MD Unavailable Unavailable Bj Austin MD Unavailable Unavailable Bj Austin MD Unavailable Unavailable Bj Austin MD Unavailable Unavailable Bj Austin MD Unavailable Unavailable Bj Austin MD Unavailable Unavailable Bj Austin MD Unavailable Unavailable Bj Austin MD Unavailable Unavailable Bj Austin MD Unavailable Unavailable Bj Austin MD Unavailable Unavailable Bj Austin MD Unavailable Unavailable Bj Austin MD Unavailable Unavailable Bj Austin MD Unavailable Unavailable Bj Austin MD Unavailable Unavailable Bj Austin MD Unavailable Unavailable Bj Austin MD Unavailable Unavailable Bj Austin MD Unavailable Unavailable Padalino, Bj Addison MD Unavailable Unavailable Padalino, Bj Addison MD Unavailable Unavailable Padalino, Bj Addison MD Unavailable Unavailable Padalino, Bj Addison MD Unavailable Unavailable Padalino, Bj Addison MD Unavailable Unavailable Padalino, Bj Addison MD Unavailable Unavailable Padalino, Bj Addison MD Unavailable Unavailable Padalino, Bj Addison MD Unavailable Unavailable Padalino, Bj Addison MD Unavailable Unavailable Padalino, Bj Addison MD Unavailable Unavailable Padalino, Bj Addison MD Unavailable Unavailable Padalino, Bj Addison MD Unavailable Unavailable Padalino, Bj Addison MD Unavailable Unavailable Padalino, Bj Addison MD Unavailable Unavailable Padalino, Bj Addison MD Unavailable Unavailable Padalino, Bj Addison MD Unavailable Unavailable Padalino, Bj Addison MD Unavailable Unavailable Padalino, Bj Addison MD Unavailable Unavailable Padalino, Bj Addison MD Unavailable Unavailable Padalino, Bj Addison MD Unavailable Unavailable Padalino, Bj Addison MD Unavailable Unavailable Padalino, Bj Addison MD Unavailable Unavailable Padalino, Bj Addison MD Unavailable Unavailable Padalino, Bj Addison MD Unavailable Unavailable Padalino, Bj Addison MD Unavailable Unavailable Padalino, Bj Addison MD Unavailable Unavailable Padalino, Bj Addison MD Unavailable Unavailable Padalino, Bj Addison MD Unavailable Unavailable Padalino, Bj Addison MD Unavailable Unavailable Padalino, Bj Addison MD Unavailable Unavailable Padalino, Bj Addison MD Unavailable Unavailable Padalino, Bj Addison MD Unavailable Unavailable Padalino, Bj Addison MD Unavailable Unavailable Padalino, Bj Addison MD Unavailable Unavailable Padalino, Bj Addison MD Unavailable Unavailable Padalino, Bj Addison MD Unavailable Unavailable Padalino, Bj Addison MD Unavailable Unavailable Padalino, Bj Addison MD Unavailable Unavailable Padalino, Bj Addison MD Unavailable Unavailable Padalino, Bj Addison MD Unavailable Unavailable Padalino, Bj Addison MD Unavailable Unavailable Padalino, Bj Addison MD Unavailable Unavailable Padalino, Bj Addison MD Unavailable Unavailable Padalino, Bj Addison MD Unavailable Unavailable Padalino, Bj Addison MD Unavailable Unavailable Padalino, Bj Addison MD Unavailable Unavailable Padalino, Bj Addison MD Unavailable Unavailable Padalino, Bj Addison MD Unavailable Unavailable Padalino, Bj Addison MD Unavailable Unavailable Padalino, Bj Addison MD Unavailable Unavailable Padalino, Bj Addison MD Unavailable Unavailable Padalino, Bj Addison MD Unavailable Unavailable Padalino, Bj Addison MD Unavailable Unavailable Padalino, Bj Addison MD Unavailable Unavailable Padalino, Bj Addison MD Unavailable Unavailable Padalino, Bj Addison MD Unavailable Unavailable Padalino, Bj Addison MD Unavailable Unavailable Padalino, Bj Addison MD Unavailable Unavailable Padalino, Bj Addison MD Unavailable Unavailable Padalino, Bj Addison MD Unavailable Unavailable Padalino, Bj Addison MD Unavailable Unavailable Padalino, Bj Addison MD Unavailable Unavailable Padalino, Bj Addison MD Unavailable Unavailable Padalino, Bj Addison MD Unavailable Unavailable Padalino, Bj Addison MD Unavailable Unavailable Padalino, Bj Addison MD Unavailable Unavailable Padalino, Bj Addison MD Unavailable Unavailable Padalino, Bj Addison MD Unavailable Unavailable Padalino, Bj Addison MD Unavailable Unavailable Padalino, Bj Addison MD Unavailable Unavailable Padalino, Bj Addison MD Unavailable Unavailable Padalino, Bj Addison MD Unavailable Unavailable Padalino, Bj Addison MD Unavailable Unavailable Padalino, Bj Addison MD Unavailable Unavailable Padalino, Bj Addison MD Unavailable Unavailable Padalino, Bj Addison MD Unavailable Unavailable Padalino, Bj Addison MD Unavailable Unavailable Padalino, Bj Addison MD Unavailable Unavailable Padalino, Bj Addison MD Unavailable Unavailable Padalino, Bj Addison MD Unavailable Unavailable Padalino, Bj Addison MD Unavailable Unavailable Padalino, Bj Addison MD Unavailable Unavailable Padalino, Bj Addison MD Unavailable Unavailable Padalino, Bj Addison MD Unavailable Unavailable Padalino, Bj Addison MD Unavailable Unavailable Padalino, Bj Addison MD Unavailable Unavailable Padalino, Bj Addison MD Unavailable Unavailable Padalino, Bj Addison MD Unavailable Unavailable Padalino, Bj Addison MD Unavailable Unavailable Padalino, Bj Addison MD Unavailable Unavailable Padalino, Bj Addison MD Unavailable Unavailable Padalino, Bj Addison MD Unavailable Unavailable Padalino, Bj Addison MD Unavailable Unavailable Padalino, Bj Addison MD Unavailable Unavailable Padalino, Bj Addison MD Unavailable Unavailable Padalino, Bj Addison MD Unavailable Unavailable Padalino, Bj Addison MD Unavailable Unavailable Padalino, Bj Addison MD Unavailable Unavailable Padalino, Bj Addison MD Unavailable Unavailable Padalino, Bj Addison MD Unavailable Unavailable Padalino, Bj Addison MD Unavailable Unavailable Padalino, Bj Addison MD Unavailable Unavailable Padalino, Bj Addison MD Unavailable Unavailable Padalino, Bj Addison MD Unavailable Unavailable Padalino, Bj Addison MD Unavailable Unavailable Padalino, Bj Addison MD Unavailable Unavailable Padalino, Bj Addison MD Unavailable Unavailable Padalino, Bj Addison MD Unavailable Unavailable Padalino, Bj Addison MD Unavailable Unavailable Padalino, Bj Addison MD Unavailable Unavailable Padalino, Bj Addison MD Unavailable Unavailable Padalino, Bj Addison MD Unavailable Unavailable Padalino, Bj Addison MD Unavailable Unavailable Padalino, Bj Addison MD Unavailable Unavailable Padalino, Bj Addison MD Unavailable Unavailable Padalino, Bj Addison MD Unavailable Unavailable Padalino, Bj Addison MD Unavailable Unavailable Padalino, Bj Addison MD Unavailable Unavailable Padalino, Bj Addison MD Unavailable Unavailable Padalino, Bj Addison MD Unavailable Unavailable Padalino, Bj Addison MD Unavailable Unavailable Padalino, Bj Addison MD Unavailable Unavailable Padalino, Bj Addison MD Unavailable Unavailable Padalino, Bj Addison MD Unavailable Unavailable Padalino, Bj Addison MD Unavailable Unavailable Padalino, Bj Addison MD Unavailable Unavailable Padalino, Bj Addison MD Unavailable Unavailable Padalino, Bj Addison MD Unavailable Unavailable Padalino, Bj Addison MD Unavailable Unavailable Fish, [facility], PA-C Unavailable Unavailabl e Fish, [facility], PA-C Unavailable Unavailabl e Fish, [facility], PA-C Unavailable Unavailabl e Fish, [facility], PA-C Unavailable Unavailabl e Fish, [facility], PA-C Unavailable Unavailabl e Fish, [facility], PA-C Unavailable Unavailabl e Fish, [facility], PA-C Unavailable Unavailabl e Fish, [facility], PA-C Unavailable Unavailabl e Fish, [facility], PA-C Unavailable Unavailabl e Fish, [facility], PA-C Unavailable Unavailabl e Fish, [facility], PA-C Unavailable Unavailabl e Fish, [facility], PA-C Unavailable Unavailabl e Fish, [facility], PA-C Unavailable Unavailabl e Fish, [facility], PA-C Unavailable Unavailabl e Fish, [facility], PA-C Unavailable Unavailabl e Fish, [facility], PA-C Unavailable Unavailabl e Fish, [facility], PA-C Unavailable Unavailabl e Fish, [facility], PA-C Unavailable Unavailabl e Fish, [facility], PA-C Unavailable Unavailabl e Fish, [facility], PA-C Unavailable Unavailabl e Fish, [facility], PA-C Unavailable Unavailabl e Fish, Lisy Ayesha MPAS, PA-C Unavailable Unavailabl e Fish, Lisy Hodge MPAS, PA-C Unavailable Unavailabl e Fish, Lisy Hodge MPAS, PA-C Unavailable Unavailabl e Fish, Lisy Hodge MPAS, PA-C Unavailable Unavailabl e Fish, Lisy Hodge MPAS, PA-C Unavailable Unavailabl e Fish, Lisy Hodge MPAS, PA-C Unavailable Unavailabl e Fish, Lisy Hodge MPAS, PA-C Unavailable Unavailabl e Fish, Lisy Hodge MPAS, PA-C Unavailable Unavailabl e Fish, Lisy Hodge MPAS, PA-C Unavailable Unavailabl e Fish, Lisy Hodge MPAS, PA-C Unavailable Unavailabl e Fish, Lisy Hodge MPAS, PA-C Unavailable Unavailabl e Fish, Lisy Hodge MPAS, PA-C Unavailable Unavailabl e Re-disclosure Warning The records that you are about to access may contain information from federally-assisted alcohol or drug abuse programs. If such information is present, then the following federally mandated warning applies: This information has been disclosed to you from records protected by federal confidentiality rules (42 CFR part 2). The federal rules prohibit you from making any further disclosure of this information unless further disclosure is expressly permitted by the written consent of the person to whom it pertains or as otherwise permitted by 42 CFR part 2. A general authorization for the release of medical or other information is NOT sufficient for this purpose. The Federal rules restrict any use of the information to criminally investigate or prosecute any alcohol or drug abuse patient.The records that you are about to access may contain highly sensitive health information, the redisclosure of which is protected by Article 27-F of the [facility] Public Health law. If you continue you may have access to information: Regarding HIV / AIDS; Provided by facilities licensed or operated by the [facility] Office of Mental Health; or Provided by the [facility] Office for People With Developmental Disabilities. If such information is present, then the following [facility] mandated warning applies: This information has been disclosed to you from confidential records which are protected by state law. State law prohibits you from making any further disclosure of this information without the specific written consent of the person to whom it pertains, or as otherwise permitted by law. Any unauthorized further disclosure in violation of state law may result in a fine or group home sentence or both. A general authorization for the release of medical or other information is NOT sufficient authorization for further disc losure. Family History Family Member Name Family Member Gender Family Member Status Date o f Status Description Data Source(s) Unknown Unknown Problem MEDENT ([facility]) Unknown Male Problem MEDENT ([facility]) Unknown Unknown Problem MEDENT ([facility]) Encounters Encounter Providers Location Date Indications Data Source(s ) [place] [address] [facility] [address] 09/01/2020 12:00:00 AM EST eCW1 ([facility]) Unknown [address] [facility] [place] [address] 08/26/2020 12:00:00 AM EST [facility]1 [facility] Out[facility] [address] [facility] [place] [address] 08/23/2020 12:00:00 AM EST [facility]CW1 ([facility] Unknown [address] [facility] [place] [address] 08/22/2020 12:00:00 AM EST eCW1 ([facility]) Unknown [address] [facility] [place] [address] 08/17/2020 12:00:00 AM EST eCW1 ([facility]) Outpatient [address] [facility] [place] [address] 08/09/2020 12:00:00 AM EST eCW1 ([facility]) Unknown [address] [facility] [place] [address] 08/05/2020 12:00:00 AM EST eCW1 ([facility]) Outpatient [address] [facility] [place] [address] 08/03/2020 12:00:00 AM EST [facility]CW1 [facility] Outpatient Attender: Ayesha BOX PA-C Physical Therapy 07/27/2020 12:30:00 PM EST MEDENT ([facility]) Unknown [address] [facility] [place] [address] 07/26/2020 12:00:00 AM EST eCW1 ([facility]) Outpatient Attender: Ayesha BOX PA-C Physical Therapy 06/28/2020 02:30:00 PM EDT MEDENT ([facility]) Unknown [address] [facility] [address] 06/27/2020 12:00:00 AM EDT eCW1 ([facility]) Office Visit Attender: Ayesha BOX PA-C Physical Therapy 03/29/2020 09:30:00 AM EDT MEDENT ([facility]) Unknown [address] [facility] [address] 03/25/2020 12:00:00 AM EDT eCW1 ([facility]) Office Visit Attender: Ayesha BOX PA-C Physical Therapy 03/21/2020 02:30:00 PM EDT MEDENT ([facility]) Office Visit Attender: Ayesha BOX PA-C Physical Therapy 03/15/2020 08:45:00 AM EDT MEDENT ([facility]) [place] [address] [facility] [address] 02/25/2020 12:00:00 AM EDT eCW1 ([facility]) [facility] [address] [facility] [address] 02/11/2020 12:00:00 AM EDT eCW1 ([facility]) [facility] [place] [address] [facility] [address] 01/25/2020 12:00:00 AM EDT eCW1 ([facility]) [facility] [address] [facility] [address] 12/24/2019 12:00:00 AM EDT eCW1 ([facility]) [facility] [address] [facility] [address] 11/23/2019 12:00:00 AM EDT eCW1 ([facility]) [facility] [address] [facility] [address] 10/22/2019 12:00:00 AM EST eCW1 ([facility]) [facility] [address] [facility] [address] 10/21/2019 12:00:00 AM EST eCW1 ([facility]) [facility] [address] [place] [address], [place] [address] 10/01/2019 12:00:00 AM EST eCW1 ([facility]) [facility] [address] [place] [address], [place] [address] 10/01/2019 12:00:00 AM EST eCW1 ([facility]) [facility] [address] [place] [address], [place] [address] 10/01/2019 12:00:00 AM EST eCW1 ([facility]) [facility] [address] [place] [address], [place] [address] 09/21/2019 12:00:00 AM EST eCW1 ([facility]) Outpatient 09/15/2019 10:00:00 AM EST [facility] Outpatient Attender: Azael Austin MD [facility] [place] 09/15/2019 09:40:00 AM EST MEDENT ([facility]) Outpatient Attender: Azael Austin MD [facility] 08/17 12:16:00 PM EST - 09/07/2019 12:17:00 PM EST D320 [facility] D320 Patient [place]. [address] [address] 08/17/2019 12:00:00 AM EST eCW1 ([facility]) Immunizations Vaccine Date Status Description Data Source(s) INFLUENZA VIRUS VACCINE QUADRIVAL SPLIT 2020-21(65 YR UP)/PF 07/17/2020 12:00:00 AM EDT completed [facility] Medications Medication Brand Name Start Date Product Form Dose Route Admi nistrative Instructions Pharmacy Instructions Status Indications Reaction Description Data Source(s) cefdinir 300 MG Oral Capsule Cefdinir 300 MG Cefdinir 300 MG 08/03/2020 12:00:00 AM EST active Cefdinir 300 MG e CW1 ([facility]) cefdinir 300 MG Oral Capsule Cefdinir 300 MG Cefdinir 300 MG 08/03/2020 12:00:00 AM EST active Cefdinir 300 MG e CW1 ([facility]) Diclofenac Sodium 0.01 MG/MG Topical Gel Diclofenac Sodium 07/27/2020 12:00:00 AM EST active [facility] ([facility]) NITROFURANTOIN, MACROCRYSTALS 25 MG / Ni trofurantoin, Monohydrate 75 MG Oral Capsule [Macrobid] Macrobid 100 MG Macrobid 100 MG 10/21/2019 12:00:00 AM EST active Macrobid 100 MG eCW1 (formerly [facility]) NITROFURANTOIN, MACROCRYSTALS 25 MG / Ni trofurantoin, Monohydrate 75 MG Oral Capsule [Macrobid] Macrobid 100 MG Macrobid 100 MG 10/21/2019 12:00:00 AM EST active Macrobid 100 MG eCW1 (formerly [facility]) NITROFURANTOIN, MACROCRYSTALS 25 MG / Ni trofurantoin, Monohydrate 75 MG Oral Capsule [Macrobid] Macrobid 100 MG Macrobid 100 MG 10/21/2019 12:00:00 AM EST active Macrobid 100 MG eCW1 (formerly [facility]) NITROFURANTOIN, MACROCRYSTALS 25 MG / Ni trofurantoin, Monohydrate 75 MG Oral Capsule [Macrobid] Macrobid 100 MG Macrobid 100 MG 10/21/2019 12:00:00 AM EST active Macrobid 100 MG eCW1 (formerly [facility]) NITROFURANTOIN, MACROCRYSTALS 25 MG / Ni trofurantoin, Monohydrate 75 MG Oral Capsule [Macrobid] Macrobid 100 MG Macrobid 100 MG 10/21/2019 12:00:00 AM EST active 1 capsule at bedtime wit h food eCW1 ([facility]) Amoxicillin 500 MG UNK 10/01/2019 12:00:00 AM EST active 1 capsule eCW1 ([facility]) Insurance Providers Payer name Policy type / Coverage type Policy ID Covered alliance party ID Covered alliance party's relationship to overton Policy [place] Plan Information MEDICARE [id number] SP [id number] [place] HU[place] [id number] 2 [id number] MEDICARE C [id number] S [id number] [id number] [place] [id number] S [id number] [place]AST HU[place]NA [id number] 2 [id number] FOR LIFE [id number] [facility] [id number] MEDICARE [id number] S [id number] ANSI-Not a Secondary Insurance [id number] ANSI-Not a Secondary Insurance [id number] ANSI-Not a Secondary Insurance [id number] ANSI-Not a Secondary Insurance [id number] ANSI-Not a Secondary Insurance [id number] ANSI-Not a Secondary Insurance [id number] ANSI-Not a Secondary Insurance [id number] ANSI-Not a Secondary Insurance [id number] ANSI-Not a Secondary Insurance [id number] ANSI-Not a Secondary Insurance [id number] ANSI-Not a Secondary Insurance [id number] ANSI-Not a Secondary Insurance [id number] ANSI-Not a Secondary Insurance [id number] ANSI-Not a Secondary Insurance [id number] ANSI-Not a Secondary Insurance [id number] [facility] < 09/16/17 Commercial [id number] Self [id number] ANSI-Not a Secondary Insurance [id number] ANSI-Not a Secondary Insurance [id number] ANSI-Not a Secondary Insurance [id number] ANSI-Not a Secondary Insurance [id number] ANSI-Not a Secondary Insurance [id number] ANSI-Not a Secondary Insurance [id number] ANSI-Not a Secondary Insurance [id number] ANSI-Not a Secondary Insurance [id number] ANSI-Not a Secondary Insurance [id number] ANSI-Not a Secondary Insurance [id number] [facility] Community Plan Medigap Part B [id number] Self [id number] [facility] Federal Service Medigap Part B [id number] Family De pendent [id number] [place] Commercial [id number] Family Dependent [id number] [place] (pr) Medigap Part B [id number] Self [id number] ANSI-Not a Secondary Insurance [id number] [id number] [id number] HU2 [id number] [facility] Community Plan Medigap Part B [id number] Self [id number] [facility] Federal Service Medigap Part B [id number] Family De pendent [id number] [place] Commercial [id number] Family Dependent [id number] Commercial [id number] Self [id number] [address] REGIONAL CLAIMS CARID[place] -O/P [id number] 01 [id number] [place] [id number] HU2 [id number] [place] O [id number] S [id number] [facility] Community Plan Medigap Part B [id number] Self [id number] [facility] Federal Service Commercial [id number] Family Depend ent [id number] [facility] COMMUNITY PLAN MCDO [id number] SP [id number] [facility] COMMUNITY PLAN MCDO [id number] SP [id number] [facility] COMMUNITY PLAN MCDO [id number] SP [id number] Ghi Medigap Part B [id number] Self [id number] Ghi Medigap Part B [id number] Self [id number] [facility] Health Maintenance Organization ([facility]) [id number] Self [id number] Ghi Medigap Part B [id number] Self [id number] Ghi Medigap Part B [id number] Self [id number] [facility] Health Maintenance Organization ([facility]) [id number] Self [id number] [facility] O [id number] S [id number] Ghi Medigap Part B [id number] Self [id number] Ghi Medigap Part B [id number] Self [id number] [facility] Health Maintenance Organization ([facility]) [id number] Self [id number] [facility] Community Plan Commercial [id number] Self [id number] Ghi Medigap Part B [id number] Self [id number] Ghi Medigap Part B [id number] Self [id number] [facility] Health Maintenance Organization (HMO) [id number] Self [id number] Ghi Medigap Part B [id number] Self [id number] Ghi Medigap Part B [id number] Self [id number] [facility]ydia[facility] Health Maintenance Organization (HMO) [id number] Self [id number] [employer] COMMUNITY PLAN MCDHMO [id number] SP [id number] [facility] Community Plan Commercial Self UHC COMM PLAN LYDIA W [id number] S [id number] MEDICAID GME W [id number] S [id number] P UHC COMM PLAN CHP O [id number] S [id number] UHC COMM PLAN CHP O [id number] S [id number] UNHC AMERICHOICE XIX -HMO [id number] 18 [id number] [facility] COMM PLAN [id number] 18 [id number] [facility](MCAID) P UNAVAILABLE S UNAVAILABLE [employer] [facility] -O/P [id number] 18 [id number] [facility] [id number] SP [id number] Surgeries/Procedures Procedure Description Date Indications Data Source(s) ARTHROCENTESIS ASPIR&/INJECTION MAJOR JT/BURSA 12:00:00 AM EST MEDENT ([facility] ) RADIOLOGIC EXAM KNEE COMPLETE 4/MORE VIEWS 07/27/2020 12:00:00 AM EST MEDENT ([facility] ) ARTHROCENTESIS ASPIR&/INJECTION MAJOR JT/BURSA 12:00:00 AM EDT MEDENT ([facility] ) X-Ray Hips Bilateral With Pelvis 3-4 Views 06/28/2020 12:00:00 AM EDT MEDENT ([facility]) ARTHROCENTESIS ASPIR&/INJECTION MAJOR JT/BURSA 12:00:00 AM EDT MEDENT ([facility] ) ARTHROCENTESIS ASPIR&/INJECTION MAJOR JT/BURSA 12:00:00 AM EDT MEDENT ([facility] ) ARTHROCENTESIS ASPIR&/INJECTION MAJOR JT/BURSA 12:00:00 AM EDT MEDENT ([facility]) URINE-NO MICRO 10/21/2019 12:00:00 AM EST eCW1 (Formerly [facility]) Office Visit, Est Pt., Level 3 FC 10/01/2019 12:00:00 AM EST eCW1 (Formerly [facility]) Office Visit, Est Pt., Level 3 PC 10/01/2019 12:00:00 AM EST eCW1 (Formerly [facility]) STREP A ASSAY W/OPTIC 10/01/2019 12:00:00 AM EST eCW1 (Formerly [facility]) Influenza A+B 10/01/2019 12:00:00 AM EST eCW1 (Formerly [facility]) Results ID Date Data Source [id number] 09/28/2020 10:00:00 AM EST [facility] Name Value Range Interpretation Code Description Data Luz rce(s) Supporting Document(s) SARS coronavirus 2 RNA Not Detected [facility] This lab was ordered by [facility] and reported by [facility]. ID Date Data Source MAGNESIUM LEVEL 08/19/2020 12:00:00 AM EST eCW1 ([facility]) Name Value Range Interpretation Code Description Data Luz rce(s) Supporting Document(s) 2.1 1.8-2.4 MAGNESIUM LEVEL eCW1 ([facility]) ID Date Data Source Comprehensive Metabolic Profile (CMP) 08/19/2020 12:00:00 AM EST eCW1 (Formerly [facility]) Name Value Range Interpretation Code Description Data Luz rce(s) Supporting Document(s) 1.53 0.55-1.30 CREATININE FOR GFR eCW1 ([facility]) 27 7-18 BLOOD UREA NITROGEN eCW1 ([facility]) 88 70-100 GLUCOSE, FASTING eCW1 ([facility]) 141 136-145 SODIUM LEVEL eCW1 ([facility]ly [facility]) 107 98-107 CHLORIDE LEVEL eCW1 (Formerly [facility]) 36.2 >45 GLOMERULAR FILTRATION RATE eCW 1 (Formerly [facility]) 4.6 3.5-5.1 POTASSIUM SERUM eCW1 ([facility]) 30 21-32 CARBON DIOXIDE LEVEL eCW1 ([facility]) 20 7-37 AST/SGOT eCW1 ([facility]) 9.3 8.8-10.2 CALCIUM LEVEL eCW1 ([facility]ly [facility]) 82 45-117 ALKALINE PHOSPHATASE eCW1 ([facility]) 29 12-78 ALT/SGPT eCW1 ([facility]) 0.5 0.2-1.0 BILIRUBIN,TOTAL eCW1 ([facility]) 3.7 3.2-5.2 ALBUMIN eCW1 ([facility]) 6.6 6.4-8.2 TOTAL PROTEIN eCW1 ([facility]) 1.3 1.2-2.2 ALBUMIN/GLOBULIN RATIO eCW1 ([facility]ly [facility]) ID Date Data Source UA URINALYSIS 08/19/2020 12:00:00 AM EST eCW1 ([facility]) Name Value Range Interpretation Code Description Data Luz rce(s) Supporting Document(s) Laboratory studies (set) UA URINALYS IS eCW1 (Formerly [facility]) ID Date Data Source PHOSPHOROUS LEVEL 08/19/2020 12:00:00 AM EST eCW1 ([facility]) Name Value Range Interpretation Code Description Data Luz rce(s) Supporting Document(s) 3.3 2.5-4.9 PHOSPHORUS LEVEL eCW1 ([facility]) ID Date Data Source [id number] 08/10/2020 12:00:00 AM EST [facility] Name Value Range Interpretation Code Description Data Luz rce(s) Supporting Document(s) SARS-CoV2 Rapid Antigen [facility] This lab [facility] by [facility] and reported by [facility]. ID Date Data Source URINE CULTURE 08/03/2020 12:00:00 AM EST eCW1 ([facility]) Name Value Range Interpretation Code Description Data Luz rce(s) Supporting Document(s) Laboratory studies (set) URINE CULTU RE eCW1 ([facility]ly [facility]) ID Date Data Source [id number] 09/15/2019 11:29:00 AM EST [employer] [facility] MRI BRAIN WITHOUT AND WITH CONTRAST CLINICAL STATEMENT: Benign neoplasm of cerebral meninges. TECHNIQUE: MRI of the brain was performed with and without contrast, following intravenous administration of 15 ml Prohance/ 15 ml vial. The following pulse sequences were performed: Sagittal T1 and axial T1,T2, FLAIR, GRE, DWI, post-contrast axial, sagittal, and coronal T1. In addition, thin section postcontrast [employer] protocol axial T1 MPR volume images were obtained. COMPARISON: 09/12/2018. FINDINGS: Since the prior study, there has been no significant interval change. The patient is again noted to be status post left parietal craniotomy, with stable postoperative changes deep to the craniotomy site. No new suspicious enhancement is seen. There is no acute parenchymal hemorrhage, extra-axial fluid collection, mass, mass-effect or midline shift. 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 There is no evidence of restricted diffusion to suggest acute infarction. The ventricles are normal in size and configuration. Normal intracranial arterial flow-voids are present. The visualized paranasal sinuses and orbits appear unremarkable. IMPRESSION: Since 09/12/2018, No significant interval change. Status post left parietal craniotomy, with stable postoperative changes. No evidence of recurrent tumor. Professional interpretation performed at [facility] . Name Value Range Interpretation Code Description Data Luz rce(s) Supporting Document(s) ID Date Data Source [id number] 09/07/2019 01:34:00 PM [facility] Name Value Range Interpretation Code Description Data Luz rce(s) Supporting Document(s) Creatinine,Serum 0.7-1.2 Above high normal [facility] GFR 44 mL/min >60 Below low normal [facility] ID Date Data Source [id number] 09/07/2019 01:34:00 PM [facility] Name Value Range Interpretation Code Description Data Luz rce(s) Supporting Document(s) BUN 25 mg/dL 7-18 Above high normal [facility] Procedure Social History Code Duration Value Status Description Data Source(s ) Smoking 08/23/2020 12:00:00 AM EST Never Smoker completed Never S [employer] eCW1 ([facility]) Smoking 08/23/2020 12:00:00 AM EST Never Smoker completed Never S mochristie eCW1 (Formerly [facility]) Smoking 08/23/2020 12:00:00 AM EST Never Smoker completed Never S moker eCW1 ([facility]ly [facility]) Smoking 08/23/2020 12:00:00 AM EST Never Smoker completed Never S moker eCW1 ([facility]ly [facility]) Smoking 08/09/2020 12:00:00 AM EST Never Smoker completed Never S moker eCW1 ([facility]ly [facility]) Smoking 08/09/2020 12:00:00 AM EST Never Smoker completed Never S moker eCW1 ([facility]) Smoking 08/03/2020 12:00:00 AM EST Never Smoker completed Never S moker eCW1 ([facility]) Smoking 08/03/2020 12:00:00 AM EST Never Smoker completed Never S moker eCW1 ([facility]ly [facility]) Smoking 10/21/2019 12:00:00 AM EST Never Smoker completed Never S moker eCW1 ([facility]) Smoking 10/21/2019 12:00:00 AM EST Never Smoker completed Never S moker eCW1 ([facility]ly [facility]) Smoking 10/21/2019 12:00:00 AM EST Never Smoker completed Never S moker eCW1 ([facility]ly [facility]) Smoking 10/21/2019 12:00:00 AM EST Never Smoker completed Never S moker eCW1 ([facility]) Smoking 09/15/2019 12:00:00 AM EST Patient has never smoked co mpleted Patient has never smoked MEDENT ([facility]) Vital Signs ID Date Data Source UNK Name Value Range Interpretation Code Description Data Source(s) Body surface area Derived from formula 2.18 m2 2.18 m2 MEDENT ([facility]) Body weight 116.802 kg 116.802 kg MEDENT ([facility]) [place] body weight 120 [lb_av] 120 [lb_av] MEDEN T ([facility]) Body mass index (BMI) [Ratio] 44.2 kg/m2 44.2 k g/m2 [facility] ([facility]) Body weight 257.50 [lb_av] 257.50 [lb_av] MEDEN T ([facility], ) Body height 64 [in_i] 64 [in_i] MEDENT ([facility], ) 5'4" Diastolic blood pressure 58 mm[Hg] 58 mm[Hg] MEDENT ([facility], ) Systolic blood pressure 122 mm[Hg] 122 mm[Hg] M EDENT ([facility], ) Diastolic blood pressure 77 mm[Hg] 77 mm[Hg] eCW1 ([facility]) Systolic blood pressure 131 mm[Hg] 131 mm[Hg] e CW1 ([facility]ly [facility]) Body temperature 98.1 [degF] 98.1 [degF] eCW1 ( [facility]) Respiratory rate 18 /min 18 /min eCW1 (formerly [facility]) Heart rate 77 /min 77 /min eCW1 ([facility]) Body mass index (BMI) [Ratio] 44.56 kg/m2 44.56 kg/m2 eCW1 ([facility]ly [facility]) Body height 64 [in_i] 64 [in_i] eCW1 ([facility]) Body weight 259.6 [lb_av] 259.6 [lb_av] eCW1 ([facility]) Diastolic blood pressure mm[Hg] eCW1 ([facility]ly [facility]) Systolic blood pressure 132 mm[Hg] 132 mm[Hg] e CW1 ([facility]) Body temperature 97.5 [degF] 97.5 [degF] eCW1 ( [facility]) Respiratory rate 18 /min 18 /min eCW1 (formerly [facility]) Heart rate 79 /min 79 /min eCW1 ([facility]) Body mass index (BMI) [Ratio] 44.11 kg/m2 44.11 kg/m2 eCW1 ([facility]) Body height 64 [in_i] 64 [in_i] eCW1 ([facility]) Body weight 257 [lb_av] 257 [lb_av] eCW1 ([facility]) Diastolic blood pressure 76 mm[Hg] 76 mm[Hg] eCW1 ([facility]) Systolic blood pressure 110 mm[Hg] 110 mm[Hg] e CW1 ([facility]) Body temperature 97.8 [degF] 97.8 [degF] eCW1 ( [facility]) Respiratory rate 18 /min 18 /min eCW1 (formerly [facility]) Heart rate 71 /min 71 /min eCW1 ([facility]) Body mass index (BMI) [Ratio] 44.38 kg/m2 44.38 kg/m2 eCW1 ([facility]) Body height 64 [in_i] 64 [in_i] eCW1 ([facility]) Body weight 258.6 [lb_av] 258.6 [lb_av] eCW1 ([facility]) Body mass index (BMI) [Ratio] 43.3 kg/m2 43.3 k g/m2 MEDENT ([facility]) Body weight 256.12 [lb_av] 256.12 [lb_av] MEDEN T ([facility]) Body height 64.5 [in_i] 64.5 [in_i] MEDENT ([facility]) 5'4.50" Body temperature 96.7 [degF] 96.7 [degF] MEDENT ([facility]) Diastolic blood pressure 78 mm[Hg] 78 mm[Hg] eCW1 ([facility]) Systolic blood pressure 136 mm[Hg] 136 mm[Hg] e CW1 ([facility]) Body temperature 98.4 [degF] 98.4 [degF] eCW1 ( [facility]) Respiratory rate 16 /min 16 /min eCW1 (formerly [facility]) Heart rate 77 /min 77 /min eCW1 ([facility]) Body mass index (BMI) [Ratio] 45.14 kg/m2 45.14 kg/m2 eCW1 ([facility]) Body height 64 [in_us] 64 [in_us] eCW1 ([facility]) Body weight Measured 263 [lb_av] 263 [lb_av] eC W1 ([facility]) Diastolic blood pressure 86 mm[Hg] 86 mm[Hg] eCW1 ([facility]) Systolic blood pressure 155 mm[Hg] 155 mm[Hg] e CW1 ([facility]) Body temperature 98.8 [degF] 98.8 [degF] eCW1 ( [facility]) Respiratory rate 18 /min 18 /min eCW1 (formerly [facility]) Heart rate 101 /min 101 /min eCW1 ([facility]) Body mass index (BMI) [Ratio] 44.97 kg/m2 44.97 kg/m2 eCW1 ([facility]) Body height 64 [in_us] 64 [in_us] eCW1 ([facility]) Body weight Measured 262 [lb_av] 262 [lb_av] eC W1 ([facility]) Body temperature 36.3 Connie 36.3 Connie MEDENT ( [facility]) Body temperature 97.4 [degF] 97.4 [degF] MEDENT ([facility]) Heart rate 82 /min 82 /min MEDENT ([facility]) Diastolic blood pressure 76 mm[Hg] 76 mm[Hg] MEDENT ([facility]) Systolic blood pressure 122 mm[Hg] 122 mm[Hg] M EDENT ([facility]) Body mass index (BMI) [Ratio] 44.5 kg/m2 44.5 k g/m2 MEDENT ([facility]) Body weight 259.00 [lb_av] 259.00 [lb_av] MEDEN T ([facility]) Body height 64 [in_i] 64 [in_i] MEDENT ([facility]) 5'4" Patient Treatment Plan of Care Planned Activity Planned Date Details Description Data Source (s) cefdinir 300 MG Oral Capsule 08/03/2020 12:00:00 AM EST eCW1 ([facility]) cefdinir 300 MG Oral Capsule 08/03/2020 12:00:00 AM EST eCW1 (Former[facility]) NITROFURANTOIN, MACROCRYSTALS 25 MG / Ni trofurantoin, Monohydrate 75 MG Oral Capsule [Macrobid] 10/21/2019 12:00:00 AM EST eC W1 ([facility]) NITROFURANTOIN, MACROCRYSTALS 25 MG / Ni trofurantoin, Monohydrate 75 MG Oral Capsule [Macrobid] 10/21/2019 12:00:00 AM EST eC W1 ([facility]) NITROFURANTOIN, MACROCRYSTALS 25 MG / Ni trofurantoin, Monohydrate 75 MG Oral Capsule [Macrobid] 10/21/2019 12:00:00 AM EST eC W1 ([facility]) NITROFURANTOIN, MACROCRYSTALS 25 MG / Ni trofurantoin, Monohydrate 75 MG Oral Capsule [Macrobid] 10/21/2019 12:00:00 AM EST eC W1 ([facility]) NITROFURANTOIN, MACROCRYSTALS 25 MG / Ni trofurantoin, Monohydrate 75 MG Oral Capsule [Macrobid] 10/21/2019 12:00:00 AM EST eC W1 ([facility]) Amoxicillin 500 MG 10/01/2019 12:00:00 AM EST eCW1 (Formerly [facility])
[2020-10-03] MEDS ORDERED: LR 1,000 ML IV ONE (07:00)
[2020-10-03] MEDS ORDERED: SCOPOLAMINE 1MG TRANSDERMAL PATCH As Ordered ONE (07:11)
[2020-10-03] MEDS ORDERED: LIDOCAINE W/EPINEPHRINE 1% 20ML VIAL As Ordered ONE (07:11)
[2020-10-03] MEDS ORDERED: propofoL 200 MG/20 ML VIAL As Ordered ONE ×2 (07:12→07:58)
[2020-10-03] MEDS ORDERED: LIDOCAINE 2% 100MG/5ML SDV (FOR ANES.) As Ordered ONE (07:12)
[2020-10-03] MEDS ORDERED: MIDAZOLAM INJ 2MG/2ML VIAL (J2250 PER 1MG) As Ordered ONE (07:13)
[2020-10-03] MEDS ORDERED: dexameTHASONE 4 MG/ML 1ML VIAL (J1100 PER 1MG) As Ordered ONE (07:13)
[2020-10-03] MEDS ORDERED: ONDANSETRON 4MG/2ML VIAL As Ordered ONE (07:13)
[2020-10-03] MEDS ORDERED: fentaNYL 100 MCG/2 ML INJECTION (J3010) As Ordered ONE (07:13)
[2020-10-03] MEDS ORDERED: SCOPOLAMINE 1MG TRANSDERMAL PATCH TOP ONE (07:30)
[2020-10-03] MEDS ORDERED: oxyCODONE 5MG TAB As Ordered ONE (08:32)
[2020-10-03] MEDS ORDERED: ONDANSETRON 4MG/2ML VIAL IV PRN (08:45)
[2020-10-03] MEDS ORDERED: fentaNYL 100 MCG/2 ML INJECTION (J3010) IV PRN (08:45)
[2020-10-03] MEDS ORDERED: HYDROMORPHONE HCL 0.5 MG/ 0.5 ML SYRINGE (J1170 PER 1) IV PRN (08:45)
[2020-10-03] MEDS ORDERED: oxyCODONE 5MG TAB PO PRN (08:45)
[2020-10-03] MEDS ORDERED: LR 1,000 ML IV SCH (08:45)
[2020-10-03 09:00] VITALS: BP 125/64
--- NOTE | 2020-10-03 09:21 | RO ---
OPERATIVE NOTE DATE OF OPERATION: 10/03/2020 PREOPERATIVE DIAGNOSIS: Left upper arm lipoma. POSTOPERATIVE DIAGNOSIS: Left upper arm lipoma. PROCEDURE: Excision of left upper arm lipoma. SURGEON: Seamus Orozco DO TIRE SERVICER: None. ANESTHESIA: IV sedation with 10 mL of 1% Lidocaine with epi local. COMPLICATIONS: None. EBL: 5. INDICATION FOR PROCEDURE: The patient is a 65-year-old female who presents with a large mass in the left upper arm. It appeared to be a lipoma on exam. Recommendation was to proceed with excision. Risks and benefits of the procedure not limited to but including bleeding, infection, damage to surrounding structures, seroma, and need for further surgery were discussed in detail with the patient, informed consent was obtained and procedure was planned. DESCRIPTION OF PROCEDURE: The patient was brought back to the operating room 7. After sufficient sedation, the left upper arm was steriley prepped and draped with Chlorhexidine. Next a timeout was done to confirm proper patient and proper procedure. Following that, local was injected into the skin longitudinally overlying the lesion. Next, a 6 cm incision was created using a 15 blade scalpel. Cautery was then used to used to enter into the capsule of the lipoma. Once the lipoma was entered, it had a nice smooth surface to it. Blunt dissection was used to take down adhesions circumferentially around the mass, and the mass was able to be removed all in one piece. Once it was removed, it measured 11 x 7 cm. The wound edges were cauterized to control hemostasis. The incision was then closed with interrupted 3-0 nylon sutures. Once that was completed, the arm was cleaned and dried. A 4 x 4 and tape were applied.
== END 2020-10-03 09:23 | disposition home or self-care (01) ==
LOC: M SDC 06:12
PROVIDERS: ATTEND Surgery
DX: D17.22 Benign lipomatous neoplasm of skin and subcutaneous tissue of left arm (principal); I10 Essential (primary) hypertension; M81.0 Age-related osteoporosis without current pathological fracture; N18.30 Chronic kidney disease, stage 3 unspecified; Z85.42 Personal history of malignant neoplasm of other parts of uterus; Z79.899 Other long term (current) drug therapy
CPT/HCPCS: 11406; 88304; J1100; J2250; J2405; J3010

== ENCOUNTER → 2020-11-09 | Outpatient (REF) | payer MEDICARE, OTHER | LOC: M LAB REF 17:39 | PROVIDERS: ATTEND Internal Medicine Nephrology | DX: N18.32 Chronic kidney disease, stage 3b (principal) ==

== ENCOUNTER → 2020-11-25 | Outpatient (CLI) | payer MEDICARE, OTHER ==
[~2020-11-25] MED LIST changes: +NAPR-849 PO; -NAPR250T4 PO
--- NOTE | 2020-11-25 08:22 | REP ---
INDICATION: UNSPECIFIED HYDRONEPHROSIS, OVER ACTIVE BLADDER COMPARISON: 04/29/2015 TECHNIQUE: Real time B-mode ultrasound examination using curved array transducer. FINDINGS: Bladder is normal in appearance without wall thickening or mass lesion. Bilateral ureteral jets are identified. Prevoid bladder measures 6.2 x 8.0 x 3.9 cm (126 cc) Postvoid bladder measures 5.1 x 5.1 x 2.5 cm (42 cc) Postvoid residual: 34% IMPRESSION: 1. Normal appearance of the bladder with increased postvoid residual volume requiring further investigation. <Electronically signed by Gonzalo Medel > 11/25/20 [id number]
--- NOTE | 2020-11-25 09:16 | REP ---
INDICATION: UNSPECIFIED HYDRONEPHROSIS, OVER ACTIVE BLADDER- US FIRST. COMPARISON: Renal ultrasound 08/29/2020 TECHNIQUE/RADIOTRACER AND DOSE: Following the intravenous administration of 8.8 mCi technetium 99 M Mag 3, immediate flow images are obtained, with renal function images obtained up to 30 minutes post injection, in the posterior projection. FINDINGS: There is mildly delayed perfusion of both kidneys, slightly more so on the right. Diffuse cortical uptake is seen symmetrically with no parenchymal defect. There is bilateral excretion and cortical washout. Renal collecting systems do not appear to be significantly dilated. Split function is 47.7% on the left and 52.3% on the right. Time to peak is delayed bilaterally at 8 minutes. Renal function curves are [id number] shallow in their downward slopes bilaterally. T1/2 is not calculated as it is in excess of 30 minutes. There is mild postvoid residual in the urinary bladder after voiding. IMPRESSION: Mildly delayed perfusion of both kidneys. Mild to moderately compromised renal function bilaterally without evidence of significant hydronephrosis. <Electronically signed by Seamus Del Rio > 11/25/20 [id number]
== END ==
LOC: M RAD 07:13
PROVIDERS: ATTEND Internal Medicine Nephrology
DX: N13.30 Unspecified hydronephrosis (principal); N32.81 Overactive bladder
CPT/HCPCS: 76857; 78707; A9562

== ENCOUNTER → 2021-08-16 | Outpatient (CLI) | payer MEDICARE, OTHER | LOC: M WHC 13:39 | PROVIDERS: ATTEND Obstetrics & Gynecology | DX: Z12.31 Encounter for screening mammogram for malignant neoplasm of breast (principal); Z80.3 Family history of malignant neoplasm of breast ==

== ENCOUNTER → 2021-08-22 | Outpatient (REF) | payer MEDICARE, OTHER | LOC: M LAB REF 17:16 | PROVIDERS: ATTEND Internal Medicine Nephrology | DX: E83.42 Hypomagnesemia (principal) ==

== ENCOUNTER → 2021-10-11 | Outpatient (REF) | payer MEDICARE, OTHER | LOC: M SFHCLERA 11:15 | PROVIDERS: ATTEND Student in an Organized Health Care Education/Training Program | DX: Z79.899 Other long term (current) drug therapy (principal) ==

== ENCOUNTER → 2022-02-22 | Outpatient (CLI) | payer MEDICARE, OTHER ==
[~2022-02-22] MED LIST changes: +ALBU8.5H; -D31000TA2 PO; +DILT120C89; +FURO20TA2 PO; +LISI20TA33; +TRAM1CAP15 PO; +VITA100093 PO
== END ==
LOC: M LABSMTC 11:09
PROVIDERS: ATTEND Anesthesiology
DX: Z01.812 Encounter for preprocedural laboratory examination (principal); Z20.822 Contact with and (suspected) exposure to COVID-19

== ENCOUNTER 2022-02-26 08:23 | Day surgery (SDC) | payer MEDICARE, OTHER ==
[~2022-02-26] VITALS: Ht 162.6 cm; Wt 117.0 kg
[~2022-02-26 08:23] MED LIST changes: +LIDOCAINE 2% 100MG/5ML SDV (FOR ANES.) As Ordered ONE; +NS 1,000 ML IV ONE; +propofoL 200 MG/20 ML VIAL As Ordered ONE
[2022-02-26] MEDS ORDERED: propofoL 200 MG/20 ML VIAL As Ordered ONE (10:03)
[2022-02-26 10:37] VITALS: BP 118/55
== END 2022-02-26 10:41 | disposition home or self-care (01) ==
LOC: M OPP 08:23
PROVIDERS: ATTEND Internal Medicine Gastroenterology
DX: Z12.11 Encounter for screening for malignant neoplasm of colon (principal); K63.5 Polyp of colon; K57.30 Diverticulosis of large intestine without perforation or abscess without bleeding; K64.8 Other hemorrhoids; N18.30 Chronic kidney disease, stage 3 unspecified; Z83.42 Family history of familial hypercholesterolemia; Z79.51 Long term (current) use of inhaled steroids; Z79.891 Long term (current) use of opiate analgesic; Z79.899 Other long term (current) drug therapy; Z80.1 Family history of malignant neoplasm of trachea, bronchus and lung; Z80.42 Family history of malignant neoplasm of prostate; Z80.8 Family history of malignant neoplasm of other organs or systems

== ENCOUNTER → 2022-09-19 | Outpatient (CLI) | payer MEDICARE, OTHER ==
[~2022-09-19] MED LIST changes: -LIDOCAINE 2% 100MG/5ML SDV (FOR ANES.) As Ordered ONE; -NS 1,000 ML IV ONE; -propofoL 200 MG/20 ML VIAL As Ordered ONE
== END ==
LOC: M WHC 14:17
PROVIDERS: ATTEND Obstetrics & Gynecology
DX: Z12.31 Encounter for screening mammogram for malignant neoplasm of breast (principal); M85.851 Other specified disorders of bone density and structure, right thigh; Z13.820 Encounter for screening for osteoporosis

== ENCOUNTER → 2022-10-22 | Outpatient (CLI) | payer MEDICARE, OTHER ==
[2022-10-22 13:15] LABS: BASO # 0.1 10^3/uL (0.0-0.2); BASO % 0.9 % (0.0-1.0); EOS # 0.4 10^3/uL (0.0-0.5); HEMATOCRIT 38.4 % (36.0-47.0); LYMPH % 31.2 % (24.0-44.0); MEAN CORPUSCULAR HEMOGLOBIN 30.6 pg (27.0-33.0); MEAN CORPUSCULAR HGB CONC 31.3 g/dl (32.0-36.5); MONO # 0.7 10^3/uL (0.0-0.8); MONO % 10.3 % (2.0-8.0); NEUTROPHILS # 3.3 10^3/uL (1.5-8.5); NEUTROPHILS % 51.3 % (36.0-66.0); PLATELET COUNT, AUTOMATED 246 10^3/uL (150-450); RED BLOOD COUNT 3.92 10^6/uL (4.00-5.40); WHITE BLOOD COUNT 6.4 10^3/uL (4.0-10.0)
[2022-10-22 13:39] LABS: CALCIUM LEVEL 9.7 MG/DL (8.3-10.6); CREATININE FOR GFR 1.4 MG/DL (0.55-1.30); GLOMERULAR FILTRATION RATE 39.8 (>45); POTASSIUM SERUM 4.4 MMOL/L (3.5-5.1)
== END ==
LOC: M WUC 11:25
PROVIDERS: ATTEND Student in an Organized Health Care Education/Training Program
DX: N18.32 Chronic kidney disease, stage 3b (principal); Z79.899 Other long term (current) drug therapy

== ENCOUNTER → 2023-11-01 | Outpatient (CLI) | payer MEDICARE, OTHER | LOC: M RAD 10:49 | PROVIDERS: ATTEND Internal Medicine Nephrology | DX: N18.32 Chronic kidney disease, stage 3b (principal); N32.81 Overactive bladder; N13.30 Unspecified hydronephrosis; R39.198 Other difficulties with micturition ==

== ENCOUNTER → 2023-12-24 | Outpatient (REF) | payer MEDICARE, OTHER ==
[2023-12-24 13:23] LABS: APPEARANCE, URINE CLEAR (CLEAR); BACTERIA, URINE AUTO 1+ (NEGATIVE); BILIRUBIN, URINE AUTO NEGATIVE (NEGATIVE); BLOOD, URINE BLOOD NEGATIVE (NEGATIVE); COLOR, URINE STRAW (YELLOW); GLUCOSE, URINE (UA) AUTO NEGATIVE (NEGATIVE); KETONE, URINE AUTO NEGATIVE (NEGATIVE); LEUKOCYTE ESTERASE, URINE AUTO 1+ (NEGATIVE); NITRITE, URINE AUTO NEGATIVE (NEGATIVE); PROTEIN, URINE AUTO NEGATIVE (NEGATIVE); RBC, URINE AUTO 0 /HPF (0-3); SPECIFIC GRAVITY URINE AUTO 1.013 (1.002-1.035); SQUAMOUS EPITHELIAL CELL UR AU 2 /HPF (0-6); UROBILINOGEN, URINE AUTO 0.2 mg/dL (0.0-2.0); WBC, URINE AUTO 5 /HPF (0-3)
== END ==
LOC: M SMT 12:07
PROVIDERS: ATTEND Nurse Practitioner Family
DX: R35.0 Frequency of micturition (principal)

== ENCOUNTER → 2023-12-26 | Outpatient (CLI) | payer MEDICARE, OTHER | LOC: M PLAIMG 10:38 | PROVIDERS: ATTEND Nurse Practitioner Family | DX: N28.89 Other specified disorders of kidney and ureter (principal); N28.1 Cyst of kidney, acquired; K57.30 Diverticulosis of large intestine without perforation or abscess without bleeding ==

== ENCOUNTER → 2024-06-26 | Outpatient (REF) | payer MEDICARE, OTHER ==
[2024-06-26 16:46] LABS: APPEARANCE, URINE CLOUDY (CLEAR); BACTERIA, URINE AUTO NEGATIVE (NEGATIVE); BILIRUBIN, URINE AUTO NEGATIVE (NEGATIVE); BLOOD, URINE BLOOD NEGATIVE (NEGATIVE); COLOR, URINE AMBER (YELLOW); GLUCOSE, URINE (UA) AUTO NEGATIVE (NEGATIVE); KETONE, URINE AUTO TRACE mg/dL (NEGATIVE); LEUKOCYTE ESTERASE, URINE AUTO 3+ (NEGATIVE); MUCUS, URINE SMALL (NEGATIVE); NITRITE, URINE AUTO NEGATIVE (NEGATIVE); PROTEIN, URINE AUTO 1+ mg/dL (NEGATIVE); RBC, URINE AUTO 91 /HPF (0-3); SQUAMOUS EPITHELIAL CELL UR AU 6 /HPF (0-6); UROBILINOGEN, URINE AUTO 0.2 mg/dL (0.0-2.0); WBC, URINE AUTO TNTC /HPF (0-3)
== END ==
LOC: M SFHCLERA 16:06
PROVIDERS: ATTEND Physician Assistant
DX: R30.0 Dysuria (principal)

== ENCOUNTER → 2024-07-15 | Outpatient (CLI) | payer MEDICARE, OTHER | LOC: M WHC 13:42 | PROVIDERS: ATTEND Obstetrics & Gynecology | DX: Z12.31 Encounter for screening mammogram for malignant neoplasm of breast (principal); R92.313 Mammographic fatty tissue density, bilateral breasts ==